=== PATIENT | female | born 1930 | race Caucasian/White ===

== ENCOUNTER → 2017-01-12 | Outpatient (CLI) | payer OTHER ==
[2015-03-25 07:23] VITALS: BP 146/77
[2017-01-12 13:48] LABS: BASOPHILS % (AUTO) 0.8 % (0.2-1.0); EOSINOPHILS # (AUTO) 0.4 x10^3/uL (0.0-0.2); EOSINOPHILS % (AUTO) 6.9 % (0.9-2.9); HEMATOCRIT 38.5 % (36.0-47.0); HEMOGLOBIN 12.8 g/dL (12.0-16.0); LYMPHOCYTES # (AUTO) 0.8 X10^3/uL (1.3-2.9); LYMPHOCYTES % (AUTO) 12.8 % (21.0-51.0); MEAN CORPUSCULAR HEMOGLOBIN 29.6 pg (27.0-34.0); MEAN CORPUSCULAR HGB CONC 33.1 g/dL (33.0-35.0); MEAN CORPUSCULAR VOLUME 89.3 fL (80.0-100.0); MEAN PLATELET VOLUME 8.2 fL (7.4-11.0); MONOCYTES # (AUTO) 0.5 x10^3/uL (0.3-0.8); MONOCYTES % (AUTO) 8.3 % (0.0-13.0); NEUTROPHILS # (AUTO) 4.2 x10^3/uL (2.2-4.8); NEUTROPHILS % (AUTO) 71.2 % (42.0-75.0); PLATELET COUNT 181 X10^3/uL (150.0-450.0); RED BLOOD COUNT 4.31 X10^6/uL (3.5-5.4); RED CELL DISTRIBUTION WIDTH 13.4 % (11.6-16.5); WHITE BLOOD COUNT 5.9 X10^3/uL (3.6-10.0)
[2017-01-12 13:49] LABS: BILIRUBIN,URINE NEGATIVE (NEGATIVE); BLOOD/HEMOGLOBIN,URINE NEGATIVE (NEGATIVE); GLUCOSE, URINE NEGATIVE (NEGATIVE); KETONES,URINE NEGATIVE (NEGATIVE); LEUKOCYTE ESTERASE ,URINE 1+ (NEGATIVE); NITRITES,URINE NEGATIVE (NEGATIVE); PROTEIN,URINE 2+ (NEGATIVE); UROBILINOGEN,URINE NORMAL (NORMAL)
[2017-01-12 13:56] LABS: AMORPHOUS SEDIMENT,UR TRACE /HPF (NEGATIVE); APPEARANCE,URINE SLIGHTLY HAZY (CLEAR); BACTERIA,URINE NEGATIVE /HPF (NEGATIVE); COLOR,URINE YELLOW (YELLOW); MUCUS,URINE FEW /HPF (NEGATIVE); RBC,URINE NONE SEEN /HPF (NEGATIVE); SQUAMOUS EPITHELIAL CELL,UR RARE /HPF (NEGATIVE)
[2017-01-12 13:59] LABS: CALCIUM 8.8 mg/dL (8.5-10.1); CARBON DIOXIDE 29.8 mmol/L (21-32); CREATININE 1.17 mg/dL (0.55-1.02)
== END ==
LOC: LAB 12:56
PROVIDERS: ATTEND Physical Medicine & Rehabilitation Pain Medicine
DX: Z01.818 Encounter for other preprocedural examination (principal); Z79.899 Other long term (current) drug therapy; Z11.8 Encounter for screening for other infectious and parasitic diseases; R79.1 Abnormal coagulation profile
CPT/HCPCS: 36415; 80048; 81001; 85025; 85610; 87641

== ENCOUNTER → 2017-02-28 | Outpatient (CLI) | payer OTHER ==
[2015-03-25 07:23] VITALS: BP 146/77
--- NOTE | 2017-02-28 13:28 | RAD ---
HISTORY: Preop hardware removal Study: Chest two views Comparison: CT chest November 25, 2016 Findings: The heart is mildly enlarged. No congestive heart failure is noted. The aorta is calcified. The lung s are mildly hyperinflated but free of acute infiltrates. No pleural effusions are identified. There is increased thoracic kyphosis secondary to thoracic spinal osteopenia with multiple compression fr actures previously treated with kyphoplasty. Hardware is present in the lower thoracic and lumbar sp ine. IMPRESSION: Mild cardiomegaly without congestive heart failure Lungs mildly hyperinflated but clear Reported By:
[2017-02-28 13:55] LABS: BASOPHILS # (AUTO) 0.1 X10^3/uL (0.0-0.1); BASOPHILS % (AUTO) 1.3 % (0.2-1.0); EOSINOPHILS # (AUTO) 0.3 x10^3/uL (0.0-0.2); EOSINOPHILS % (AUTO) 5.1 % (0.9-2.9); HEMATOCRIT 36.5 % (36.0-47.0); HEMOGLOBIN 12.1 g/dL (12.0-16.0); LYMPHOCYTES # (AUTO) 0.9 X10^3/uL (1.3-2.9); LYMPHOCYTES % (AUTO) 15.5 % (21.0-51.0); MEAN CORPUSCULAR HEMOGLOBIN 29.6 pg (27.0-34.0); MEAN CORPUSCULAR HGB CONC 33.1 g/dL (33.0-35.0); MEAN CORPUSCULAR VOLUME 89.4 fL (80.0-100.0); MONOCYTES # (AUTO) 0.5 x10^3/uL (0.3-0.8); MONOCYTES % (AUTO) 7.8 % (0.0-13.0); NEUTROPHILS # (AUTO) 4.2 x10^3/uL (2.2-4.8); NEUTROPHILS % (AUTO) 70.3 % (42.0-75.0); PLATELET COUNT 170 X10^3/uL (150.0-450.0); RED BLOOD COUNT 4.08 X10^6/uL (3.5-5.4); RED CELL DISTRIBUTION WIDTH 13.5 % (11.6-16.5)
[2017-02-28 17:05] LABS: BLOOD UREA NITROGEN 18 mg/dL (7-18); CALCIUM 9.1 mg/dL (8.5-10.1); CARBON DIOXIDE 27.7 mmol/L (21-32); CHLORIDE 104 mmol/L (98-107); CREATININE 1.04 mg/dL (0.55-1.02); GLUCOSE 93 mg/dL (65-99); SODIUM 138 mmol/L (136-145); eGFR BLACK RACES > 60 (>60); eGFR NON BLACK RACES 54 (>60)
== END | disposition home or self-care (01) ==
LOC: LAB 12:52
PROVIDERS: ATTEND Neurological Surgery
DX: Z01.818 Encounter for other preprocedural examination (principal); Z01.810 Encounter for preprocedural cardiovascular examination; Z01.811 Encounter for preprocedural respiratory examination; I34.1 Nonrheumatic mitral (valve) prolapse; J44.9 Chronic obstructive pulmonary disease, unspecified
CPT/HCPCS: 36415; 71020; 80048; 85002; 85025; 93005; 93010

== ENCOUNTER 2017-03-09 09:47 | Inpatient (IN) | payer OTHER ==
[2017-03-09] MEDS ORDERED: DILAUDID INJ IVP ONE ×3 (09:51→15:10)
[2017-03-09] MEDS ORDERED: DILAUDID INJ ONE ×4 (09:54→16:22)
--- NOTE | 2017-03-09 09:54 | DR.GENAD ---
HPI - Complaint/Symptoms Chief Complaint Doctors Comments: Patient fell today while at home, injured left hip. Yesterday had nerve stimulator implanted on yesterday. Patient states that when she got out of bed she put pressure on right foot but when she put pressure on the left extremity she fell to the floor. Had pain in left hip. - Nurses notes reviewed Nurses Notes Review: Yes - Source History Provided: Patient - Mode of Arrival Mode of Arrival: EMS - Timing Onset of Chief Complaint: 03/09/17 PMH - PMH Past Medical History: Anxiety, Dyslipidemia Past Surgical History: Yes Surgical History: Hysterectomy - Social History Do you use any recreational Drugs:: No ROS - Review of Systems Eyes: No Symptoms Reported ENTM: No Symptoms Reported Respiratoy: No Symptoms Reported Cardiovascular: No Symptoms Reported Gastrointestinal/Abdominal: No Symptoms Reported Genitourinary: No Symptoms Reported Neurological: No Symptoms Reported Musculoskeletal: Hip (left ) Integumentary: No Symptoms Reported Hematologic/Lymphatic: No Symptoms Reported Endocrine: No Symptoms Reported Psychiatric: No Symptoms Reported All Other Systems: Reviewed and Negative PE - Vital Signs Vitals: Temperature 97.6 F Pulse Rate 78 Respiratory Rate 18 Blood Pressure 184/73 O2 Sat by Pulse Oximetry 97 - General Limitations: No Limitations General Appearance: Alert, In Distress - Head Head Exam: Normal Inspection, Atraumatic - Eyes Eye exam: Normal Appearance, PERRL, EOMI - ENT ENT Exam: Normal Exam External Ear Exam: Normal External Inspection TM/Canal Exam: Bilateral Normal Nose Exam: Normal Nose Exam Mouth Exam: Normal Inspection Throat Exam: Normal Inspection - Neck Neck Exam: Normal Inspection - Chest Chest Inspection: Normal Inspection - Respiratory Respiratory Exam: Normal Lung Sounds Bilat Respiratory Exam: Bilateral Clear to Auscultation - Cardiovascular Cardiovascular Exam: Regular Rate, Normal Rhythm - Abdominal Exam Abdominal Exam: Normal Inspection Abdominal Tenderness: negative: RUQ, RLQ, LUQ, LLQ, Epigastrium, Suprapubic, Diffuse, Mild, Moderate, Severe, Other - Extremities Extremities Exam: Tenderness (left hip externally rotated, painful to touch) - Back Back Exam: Tenderness (chronic low back pain, nerve stimulator inplanted yesterday) - Neurologic Neurological Exam: Alert, Oriented X3 - Psychiatric Psychiatric Exam: Normal Affect - Skin Skin Exam: Warm, Dry Course - Treatment Treatment: Dilaudid, x ray,consult ortho--Dr Chan came to evaluate patient - Reevaluation 1st: Improved - Consultation Called: 11:01 (He reported that there is a surgeon in the group who does hips and will call back shortly concerning particulars) Call Returned: 13:05 ([facility]rest for further evaluation and treatment) ROR - Labs Reviewed Result Diagrams: 03/09/17 15:25 03/09/17 15:25 - XRAY XRAY Interpreted by: Radiologist (A comminuted spiral fracture of the sub trochanteric region of the proximal left femoral shaft. There is valgus displacement of the distal fracture fragments.) - Diagnosis Discharge Problem: Fracture, femur, subtrochanteric Qualifiers: Encounter type: initial encounter Fracture type: closed Fracture alignment: displaced Laterality: left Qualified Code(s): S72.22XA - Displaced subtrochanteric fracture of left femur, initial encounter for closed fracture - Discharge Plan Condition: Stable - Follow ups/Referrals Follow ups/Referrals: NFD,None [Primary Care Provider] - 3 days - Instructions
[2017-03-09 10:03] VITALS: BMI 24.7
--- NOTE | 2017-03-09 10:50 | RAD ---
HISTORY: Injury, fall, left hip pain Study: Left hip two views, AP pelvis Comparison: None Findings: Postsurgical changes are present in the lower lumbar spine and pelvis. The pelvic bones are osteopen ic. The pelvic bones and SI joints appear intact as do the hip joints. However there is a comminuted spiral fracture of the sub trochanteric region of the proximal left femoral shaft. There is valgus displacement of the distal fracture fragments. IMPRESSION: Comminuted fracture of the left sub trochanteric region and proximal left femoral shaft Osteopenia Reported By:
--- NOTE | 2017-03-09 14:18 | CT ---
CT left hip without contrast Indication: Fall with hip fracture Technique: 3 mm axial images of the left hip with coronal and sagittal reformatted images provided w ithout IV contrast administration. Findings: There is a comminuted intertrochanteric femoral neck fracture. A large fracture including the lesser trochanter is displaced inferomedially. Femoral head remains well positioned within the a cetabulum. There is mild osteoarthrosis of the left femoral acetabular joint. Mild enthesopathic sarah nge of the greater trochanter. Transpedicular lower lumbar spine fixation extending into the SI join t and superior left iliac crest without evidence of hardware loosening or failure. Left-sided obtura tor ring is intact. Degenerative change are noted within pubic symphysis joint. Diffuse osteopenia is present. There is enlargement and stranding within the left iliopsoas muscle consistent with combination of tear and i ntramuscular hematoma. Impression: 1.Comminuted intratrochanteric/proximal femoral diaphysis fracture with inferomedial displacement of the large fracture fragment including the lesser trochanter and proximal femoral diaphysis. No frac ture or dislocation of the femoral head or acetabulum. 2. Intramuscular tear and hematoma within the left iliopsoas muscle. Reported By:
[2017-03-09] MEDS ORDERED: DIPRIVAN VIAL ONE (15:30)
[2017-03-09] MEDS ORDERED: NORCURON INJ 10 MG VIAL ONE (15:30)
[2017-03-09] MEDS ORDERED: ROBINUL ONE (15:30)
[2017-03-09] MEDS ORDERED: NEOSTIGMINE INJ ONE (15:30)
[2017-03-09] MEDS ORDERED: QUELICIN (OR ANECTINE) ONE (15:30)
[2017-03-09] MEDS ORDERED: ZOFRAN INJ 4 MG VIAL ONE (15:30)
[2017-03-09] MEDS ORDERED: XYLOCAINE 2 % (PLAIN) ONE (15:30)
[2017-03-09] MEDS ORDERED: SUPRANE IN ONE (15:30)
[2017-03-09] MEDS ORDERED: EPHEDRINE SULFATE INJ ONE (15:30)
[2017-03-09 15:40] LABS: BASOPHILS % (AUTO) 0.4 % (0.2-1.0); HEMATOCRIT 31.2 % (36.0-47.0); HEMOGLOBIN 10.4 g/dL (12.0-16.0); LYMPHOCYTES # (AUTO) 0.4 X10^3/uL (1.3-2.9); LYMPHOCYTES % (AUTO) 3.7 % (21.0-51.0); MEAN CORPUSCULAR HGB CONC 33.2 g/dL (33.0-35.0); MEAN CORPUSCULAR VOLUME 90.5 fL (80.0-100.0); MEAN PLATELET VOLUME 8.2 fL (7.4-11.0); MONOCYTES # (AUTO) 0.8 x10^3/uL (0.3-0.8); MONOCYTES % (AUTO) 6.6 % (0.0-13.0); NEUTROPHILS # (AUTO) 10.4 x10^3/uL (2.2-4.8); NEUTROPHILS % (AUTO) 89.3 % (42.0-75.0); PLATELET COUNT 155 X10^3/uL (150.0-450.0); RED BLOOD COUNT 3.45 X10^6/uL (3.5-5.4); RED CELL DISTRIBUTION WIDTH 13.7 % (11.6-16.5); WHITE BLOOD COUNT 11.6 X10^3/uL (3.6-10.0)
[2017-03-09 15:43] LABS: CALCIUM 8.3 mg/dL (8.5-10.1); CARBON DIOXIDE 27.5 mmol/L (21-32); COR CA(FOR HYPOALB) 9.1 mg/dL (8.5-10.1); CREATININE 1.21 mg/dL (0.55-1.02); TOTAL PROTEIN 6.2 g/dL (6.4-8.2)
--- NOTE | 2017-03-09 15:46 | RAD ---
Examination: X-rays of the left femur. Clinical history: Left femur fracture, status post traction. Technique: AP and cross-table lateral views of the left femur were obtained. Comparison: X-rays of the left hip dated 03/09/2017. Findings: There is a comminuted intertrochanteric/subtrochanteric fracture of the left hip/femur, which is imp acted, with displaced bony fragments seen at the fracture site. There is rotation of the distal frag ment, as well as mild lateral angulation of the distal fragment. No soft tissue abnormality is noted. Impression: 1. Comminuted intertrochanteric/subtrochanteric fracture of the left hip/femur, as described above. Reported By:
[2017-03-09] MEDS ORDERED: BACITRACIN VIAL ONE (16:13)
[2017-03-09] MEDS ORDERED: FENTANYL INJ 250 mcg ONE (16:22)
[2017-03-09] MEDS ORDERED: NS IRRIGATION 1000 ML 1,000 ML with BACITRACIN VIAL 50,000 UNT IR ONE ×2 (16:30)
[2017-03-09] MEDS ORDERED: LR 1000 ML IV 1,000 ML IV ONE (17:10)
[2017-03-09 17:25] LABS: BILIRUBIN,URINE NEGATIVE (NEGATIVE); BLOOD/HEMOGLOBIN,URINE 1+ (NEGATIVE); GLUCOSE, URINE NEGATIVE (NEGATIVE); KETONES,URINE 2+ (NEGATIVE); LEUKOCYTE ESTERASE ,URINE NEGATIVE (NEGATIVE); NITRITES,URINE NEGATIVE (NEGATIVE); PROTEIN,URINE 3+ (NEGATIVE); UROBILINOGEN,URINE NORMAL (NORMAL)
[2017-03-09 17:44] LABS: AMORPHOUS SEDIMENT,UR 2+ /HPF (NEGATIVE); APPEARANCE,URINE HAZY (CLEAR); BACTERIA,URINE 1+ /HPF (NEGATIVE); COLOR,URINE YELLOW (YELLOW); MUCUS,URINE MODERATE /HPF (NEGATIVE); SQUAMOUS EPITHELIAL CELL,UR NEGATIVE /HPF (NEGATIVE)
[2017-03-09] MEDS ORDERED: BACTROBAN OINT ONE (18:18)
[2017-03-09] MEDS ORDERED: ZOFRAN INJ 4 MG VIAL IVP PRN ×2 (18:53→19:57)
[2017-03-09] MEDS ORDERED: DILAUDID INJ IVP PRN ×2 (18:53→20:04)
[2017-03-09] MEDS ORDERED: BENADRYL INJ 50 MG VIAL IVP PRN (18:53)
[2017-03-09] MEDS ORDERED: REGLAN INJ 10 MG VIAL IVP PRN (18:53)
[2017-03-09] MEDS ORDERED: PHENERGAN INJ 25 MG IVP PRN (18:53)
[2017-03-09 19:46] LABS: HEMATOCRIT 27.9 % (36.0-47.0); HEMOGLOBIN 9.1 g/dL (12.0-16.0)
--- NOTE | 2017-03-09 19:52 | RAD ---
FEMUR RADIOGRAPHS CLINICAL HISTORY: 86-year-old female status post ORIF left femur. COMPARISON: Radiographs of the left femur and CT of the left lower extremity this date. FINDINGS: Multiple views of the left femur demonstrate intra medullary nail with distal locking scre w and proximal helical locking screw through the femoral neck transfixing a proximal femoral fractur e and anatomic alignment. There is expected soft tissue edema about the hip and knee. Surgical drain in the soft tissues of lateral knee. Skin iggy at the hip and knee. The knee and hip joints are congruent. IMPRESSION: Status post ORIF proximal left femoral fracture with no radiographic evidence of immediate postopera tive complication. Reported By:
--- NOTE | 2017-03-09 19:53 | RAD ---
HIP RADIOGRAPHS CLINICAL HISTORY: 86-year-old female status post ORIF left femoral fracture. COMPARISON: Radiographs and CT of the left lower extremity this date. FINDINGS: Views of the left hip demonstrate proximal aspect of intra medullary nail and femoral neck helical locking screw transfixing a femoral fracture within anatomic alignment. Expected soft tissu e edema about the hip with skin iggy present. Medication device over the left lower quadrant with partially imaged posterior spinal fusion. IMPRESSION: Status post ORIF left femoral fracture without radiographic evidence of immediate postoperative comp lication. Reported By:
[2017-03-09] MEDS: MORPHINE SULFATE INJ 2 MG IVP PRN (20:48)
[2017-03-09] MEDS: LR 1000 ML IV 1,000 ML IV SCH (20:48)
[2017-03-09] MEDS: DESYREL PO SCH (22:33)
[2017-03-09] MEDS: VALIUM PO PRN (22:33)
[2017-03-09] MEDS ORDERED: NS 250 ML IV 250 ML IV ONE (22:50)
[2017-03-10] MEDS: MORPHINE SULFATE INJ 2 MG IVP PRN ×3 (05:39→19:08)
[2017-03-10 06:17] LABS: BASOPHILS % (AUTO) 0.2 % (0.2-1.0); EOSINOPHILS % (AUTO) 0.3 % (0.9-2.9); HEMATOCRIT 25.2 % (36.0-47.0); HEMOGLOBIN 8.8 g/dL (12.0-16.0); LYMPHOCYTES # (AUTO) 0.7 X10^3/uL (1.3-2.9); LYMPHOCYTES % (AUTO) 10.3 % (21.0-51.0); MEAN CORPUSCULAR HEMOGLOBIN 31.2 pg (27.0-34.0); MEAN CORPUSCULAR HGB CONC 34.8 g/dL (33.0-35.0); MEAN CORPUSCULAR VOLUME 89.8 fL (80.0-100.0); MEAN PLATELET VOLUME 8.6 fL (7.4-11.0); MONOCYTES # (AUTO) 0.7 x10^3/uL (0.3-0.8); MONOCYTES % (AUTO) 10.4 % (0.0-13.0); NEUTROPHILS # (AUTO) 5.3 x10^3/uL (2.2-4.8); NEUTROPHILS % (AUTO) 78.8 % (42.0-75.0); PLATELET COUNT 115 X10^3/uL (150.0-450.0); RED BLOOD COUNT 2.81 X10^6/uL (3.5-5.4); RED CELL DISTRIBUTION WIDTH 13.4 % (11.6-16.5); WHITE BLOOD COUNT 6.8 X10^3/uL (3.6-10.0)
[2017-03-10 06:34] LABS: BLOOD UREA NITROGEN 16 mg/dL (7-18); CARBON DIOXIDE 28.3 mmol/L (21-32); CHLORIDE 107 mmol/L (98-107); COR NA(FOR HYPERGLY) 141 mmol/L (136-145); CREATININE 1.02 mg/dL (0.55-1.02); GLUCOSE 143 mg/dL (65-99); SODIUM 140 mmol/L (136-145); eGFR BLACK RACES > 60 (>60); eGFR NON BLACK RACES 55 (>60)
[2017-03-10] MEDS: D5W 1000 ML IV 1,000 ML IV SCH ×2 (07:35→15:38)
[2017-03-10] MEDS: ECOTRIN TAB 325 MG PO SCH (09:46)
[2017-03-10] MEDS: LR 1000 ML IV 1,000 ML IV SCH ×2 (10:09→14:00)
[2017-03-10] MEDS: ANCEF VIAL 1 GM 1 GM in NS 50 ML IV + SPIKE MINIBAG* 50 ML IV SCH ×2 (14:53→21:42)
[2017-03-10] MEDS: VALIUM PO PRN (20:13)
[2017-03-10] MEDS: DESYREL PO SCH (20:13)
[2017-03-11] MEDS: LR 1000 ML IV 1,000 ML IV SCH ×2 (02:29→18:19)
[2017-03-11] MEDS: ANCEF VIAL 1 GM 1 GM in NS 50 ML IV + SPIKE MINIBAG* 50 ML IV SCH ×2 (06:28→13:40)
[2017-03-11 06:54] LABS: BLOOD UREA NITROGEN 10 mg/dL (7-18); CALCIUM 8.2 mg/dL (8.5-10.1); CARBON DIOXIDE 29.8 mmol/L (21-32); CHLORIDE 108 mmol/L (98-107); COR NA(FOR HYPERGLY) 142 mmol/L (136-145); CREATININE 0.92 mg/dL (0.55-1.02); GLUCOSE 114 mg/dL (65-99); SODIUM 142 mmol/L (136-145); eGFR BLACK RACES > 60 (>60); eGFR NON BLACK RACES > 60 (>60)
[2017-03-11 07:05] LABS: BASOPHILS % (AUTO) 0.5 % (0.2-1.0); EOSINOPHILS # (AUTO) 0.2 x10^3/uL (0.0-0.2); EOSINOPHILS % (AUTO) 3.8 % (0.9-2.9); HEMATOCRIT 20.4 % (36.0-47.0); HEMOGLOBIN 7.1 g/dL (12.0-16.0); LYMPHOCYTES # (AUTO) 0.6 X10^3/uL (1.3-2.9); LYMPHOCYTES % (AUTO) 10.2 % (21.0-51.0); MEAN CORPUSCULAR HEMOGLOBIN 31.2 pg (27.0-34.0); MEAN CORPUSCULAR VOLUME 89.3 fL (80.0-100.0); MEAN PLATELET VOLUME 8.8 fL (7.4-11.0); MONOCYTES # (AUTO) 0.7 x10^3/uL (0.3-0.8); MONOCYTES % (AUTO) 10.3 % (0.0-13.0); NEUTROPHILS # (AUTO) 4.8 x10^3/uL (2.2-4.8); NEUTROPHILS % (AUTO) 75.2 % (42.0-75.0); PLATELET COUNT 100 X10^3/uL (150.0-450.0); RED BLOOD COUNT 2.29 X10^6/uL (3.5-5.4); RED CELL DISTRIBUTION WIDTH 13.5 % (11.6-16.5); WHITE BLOOD COUNT 6.3 X10^3/uL (3.6-10.0)
[2017-03-11 07:59] LABS: PLATELET MORPHOLOGY COMMENT NORMAL (NORMAL)
[2017-03-11] MEDS ORDERED: PATIENT'S HOME MEDICATION RESPIRATORY (Oxycodone W/ Acetaminophen [Oxycodone/Acetaminophen PO PRN (09:03)
[2017-03-11] MEDS ORDERED: [UNRECOGNIZED DRUG - OTHER] INH SCH (09:15)
[2017-03-11] MEDS ORDERED: ACCUNEB 1.25 MG NEBULE IN SCH ×2 (09:15→14:00)
[2017-03-11] MEDS: ECOTRIN TAB 325 MG PO SCH (09:33)
[2017-03-11] MEDS ORDERED: ASPIRIN EC 81 MG PO SCH (10:00)
[2017-03-11] MEDS: MORPHINE SULFATE INJ 2 MG IVP PRN (10:05)
[2017-03-11] MEDS: COLACE CAP 100 MG PO SCH ×2 (11:37→20:46)
[2017-03-11] MEDS: ACCUNEB 1.25 MG NEBULE NEB SCH ×2 (13:00→21:31)
[2017-03-11] MEDS: PERCOCET TAB 5/325 MG PO SCH ×2 (13:40→22:07)
[2017-03-11] MEDS ORDERED: NS 500 ML IV 500 ML IV ONE (15:09)
[2017-03-11] MEDS: PATIENT'S HOME MEDICATION RESPIRATORY (Oxybutynin Chloride [Ditropan Xl] 10 MG) PO SCH (16:32)
[2017-03-11] MEDS: CRESTOR TAB 10 MG PO SCH (20:46)
[2017-03-11] MEDS: DESYREL PO SCH (20:48)
[2017-03-11] MEDS ORDERED: [UNRECOGNIZED DRUG - OTHER] PO SCH (21:00)
[2017-03-11] MEDS ORDERED: [UNRECOGNIZED DRUG - OTHER] PO SCH (21:00)
[2017-03-11] MEDS ORDERED: [UNRECOGNIZED DRUG - OTHER] PO SCH (21:00)
[2017-03-12 06:17] LABS: BLOOD UREA NITROGEN 10 mg/dL (7-18); CALCIUM 8.1 mg/dL (8.5-10.1); CARBON DIOXIDE 31.7 mmol/L (21-32); CHLORIDE 108 mmol/L (98-107); COR NA(FOR HYPERGLY) 142 mmol/L (136-145); CREATININE 0.87 mg/dL (0.55-1.02); GLUCOSE 118 mg/dL (65-99); SODIUM 142 mmol/L (136-145); eGFR BLACK RACES > 60 (>60); eGFR NON BLACK RACES > 60 (>60)
[2017-03-12 06:40] LABS: BASOPHILS # (AUTO) 0.1 X10^3/uL (0.0-0.1); HEMOGLOBIN 8.9 g/dL (12.0-16.0); LYMPHOCYTES # (AUTO) 1.1 X10^3/uL (1.3-2.9); MONOCYTES # (AUTO) 0.8 x10^3/uL (0.3-0.8); RED CELL DISTRIBUTION WIDTH 14.3 % (11.6-16.5)
[2017-03-12 06:46] LABS: BASOPHILS % (AUTO) 0.7 % (0.2-1.0); EOSINOPHILS # (AUTO) 0.9 x10^3/uL (0.0-0.2); EOSINOPHILS % (AUTO) 8.5 % (0.9-2.9); HEMATOCRIT 25.3 % (36.0-47.0); MEAN CORPUSCULAR HEMOGLOBIN 30.8 pg (27.0-34.0); MEAN CORPUSCULAR HGB CONC 35.1 g/dL (33.0-35.0); MEAN CORPUSCULAR VOLUME 87.7 fL (80.0-100.0); MEAN PLATELET VOLUME 9.1 fL (7.4-11.0); MONOCYTES % (AUTO) 8.2 % (0.0-13.0); NEUTROPHILS # (AUTO) 7.2 x10^3/uL (2.2-4.8); NEUTROPHILS % (AUTO) 71.6 % (42.0-75.0); PLATELET COUNT 118 X10^3/uL (150.0-450.0); RED BLOOD COUNT 2.89 X10^6/uL (3.5-5.4)
[2017-03-12 07:19] LABS: PLATELET MORPHOLOGY COMMENT NORMAL (NORMAL)
[2017-03-12] MEDS: PATIENT'S HOME MEDICATION RESPIRATORY (Oxybutynin Chloride [Ditropan Xl] 10 MG) PO SCH (08:30)
[2017-03-12] MEDS: ECOTRIN TAB 325 MG PO SCH (08:43)
[2017-03-12] MEDS: MORPHINE SULFATE INJ 2 MG IVP PRN ×2 (08:43→14:35)
[2017-03-12] MEDS: PERCOCET TAB 5/325 MG PO SCH ×3 (08:43→21:25)
[2017-03-12] MEDS: COLACE CAP 100 MG PO SCH ×2 (08:43→20:15)
[2017-03-12] MEDS: LR 1000 ML IV 1,000 ML IV SCH ×2 (09:02→20:19)
[2017-03-12] MEDS: MILK OF MAGNESIA PO SCH ×2 (12:16→20:16)
[2017-03-12] MEDS: ACCUNEB 1.25 MG NEBULE NEB SCH ×3 (12:43→20:42)
[2017-03-12 15:49] LABS: HEMATOCRIT 25.6 % (36.0-47.0)
[2017-03-12] MEDS: CYMBALTA PO SCH (17:44)
[2017-03-12] MEDS: CRESTOR TAB 10 MG PO SCH (20:17)
[2017-03-12] MEDS: DESYREL PO SCH (20:18)
[2017-03-13] MEDS: ACCUNEB 1.25 MG NEBULE NEB SCH ×3 (05:19→22:17)
[2017-03-13 05:27] LABS: BASOPHILS % (AUTO) 0.5 % (0.2-1.0); EOSINOPHILS # (AUTO) 0.6 x10^3/uL (0.0-0.2); EOSINOPHILS % (AUTO) 9.5 % (0.9-2.9); HEMATOCRIT 23.1 % (36.0-47.0); HEMOGLOBIN 8.1 g/dL (12.0-16.0); LYMPHOCYTES # (AUTO) 0.9 X10^3/uL (1.3-2.9); LYMPHOCYTES % (AUTO) 15.7 % (21.0-51.0); MEAN CORPUSCULAR HEMOGLOBIN 30.8 pg (27.0-34.0); MEAN CORPUSCULAR HGB CONC 35.2 g/dL (33.0-35.0); MEAN CORPUSCULAR VOLUME 87.5 fL (80.0-100.0); MEAN PLATELET VOLUME 8.4 fL (7.4-11.0); MONOCYTES # (AUTO) 0.6 x10^3/uL (0.3-0.8); MONOCYTES % (AUTO) 9.2 % (0.0-13.0); NEUTROPHILS # (AUTO) 3.9 x10^3/uL (2.2-4.8); NEUTROPHILS % (AUTO) 65.1 % (42.0-75.0); PLATELET COUNT 116 X10^3/uL (150.0-450.0); RED BLOOD COUNT 2.63 X10^6/uL (3.5-5.4); RED CELL DISTRIBUTION WIDTH 14.4 % (11.6-16.5)
[2017-03-13 05:47] LABS: ALANINE AMINOTRANSFERASE 13 Units/L (12-78); ALBUMIN 1.9 g/dL (3.4-5.0); ALKALINE PHOSPHATASE 57 Units/L (46-116); ASPARTATE AMINO TRANSFERASE 20 Units/L (15-37); BLOOD UREA NITROGEN 9 mg/dL (7-18); CALCIUM 8.1 mg/dL (8.5-10.1); CARBON DIOXIDE 33.2 mmol/L (21-32); CHLORIDE 107 mmol/L (98-107); COR CA(FOR HYPOALB) 9.8 mg/dL (8.5-10.1); GLUCOSE 102 mg/dL (65-99); SODIUM 143 mmol/L (136-145); TOTAL PROTEIN 4.9 g/dL (6.4-8.2); eGFR BLACK RACES > 60 (>60); eGFR NON BLACK RACES > 60 (>60)
[2017-03-13] MEDS: PERCOCET TAB 5/325 MG PO SCH ×3 (06:48→21:59)
[2017-03-13] MEDS: CYMBALTA PO SCH (08:40)
[2017-03-13] MEDS: LR 1000 ML IV 1,000 ML IV SCH (08:40)
[2017-03-13] MEDS: MILK OF MAGNESIA PO SCH ×2 (08:40→22:00)
[2017-03-13] MEDS: COLACE CAP 100 MG PO SCH ×2 (08:40→21:58)
[2017-03-13] MEDS: ECOTRIN TAB 325 MG PO SCH (08:40)
[2017-03-13] MEDS ORDERED: CYMBALTA PO SCH (10:00)
[2017-03-13] MEDS: PATIENT'S HOME MEDICATION RESPIRATORY (Oxybutynin Chloride [Ditropan Xl] 10 MG) PO SCH (11:05)
[2017-03-13 12:10] LABS: HEMATOCRIT 27.3 % (36.0-47.0); HEMOGLOBIN 9.5 g/dL (12.0-16.0)
--- NOTE | 2017-03-13 14:02 | PCM.PROG ---
Progress Note - Progress Note for Day of Date: 03/13/17 - Subjective Subjective: 86 WF S/P LEFT HIP FRACTURE REPAIR PER DR GRANGER. PT IS CURRENTLY AWAITING SNF PLACEMENT FOR REHAB THERAPY. PT HAS ASYMPTOMATIC ANEMIA. WILL CONTINUE CURRENT MEDS AND POST OP ORTHO PLAN OF CARE. REPEAT AM LABS - Past Medical Family Social History Past Med/Fam/Surg Hx: No changes since H&P Allergies: Allergies No Known Drug Allergy Allergy (Verified 02/21/15 10:46) - Review of Systems ROS: No change since H&P - Vital Signs and I&O's Vital Signs: Temperature 98.3 F Pulse Rate [Right Brachial] 88 Pulse Rate 64 Respiratory Rate 18 Blood Pressure [Left Arm] 156/68 Blood Pressure [Right Arm] 177/72 Blood Pressure 137/64 O2 Sat by Pulse Oximetry 93 Intake and Output: Intake & Output 03/11/17 03/12/17 03/13/17 03/14/17 11:59 11:59 11:59 11:59 Intake Total 3498 2760 2040 Output Total 2100 2250 3800 Balance 1398 510 -1760 - Physical Exam Oriented: Normal Eyes: Normal Ear: Normal Nose: Normal Throat: Normal Respiratory: Normal Cardiovascular: Normal Auscultation: Bowel Sounds: Normal Palpation: Normal Tenderness: Normal Skin: Vesicular (RUPTURED BLISTER TO LEFT INNER THIGH, NO LOCALIZED REDNESS), Wound (LEFT HIP, CLEAN INTACT DRESSING) Musculoskeletal: Hip, Back:Lumbar Mood Description: Calm Speech Pattern: Clear, Appropriate - Laboratory and Diagnostics Result Diagrams: 03/13/17 12:05 03/13/17 03:27 Labs: Laboratory WBC 6.0 X10^3/uL (3.6-10.0) 03/13/17 03:27 RBC 2.63 X10^6/uL (3.5-5.4) L 03/13/17 03:27 Hgb 9.5 g/dL (12.0-16.0) L 03/13/17 12:05 Hct 27.3 % (36.0-47.0) L 03/13/17 12:05 MCV 87.5 fL (80.0-100.0) 03/13/17 03:27 MCH 30.8 pg (27.0-34.0) 03/13/17 03:27 MCHC 35.2 g/dL (33.0-35.0) H 03/13/17 03:27 RDW 14.4 % (11.6-16.5) 03/13/17 03:27 Plt Count 116 X10^3/uL (150.0-450.0) L 03/13/17 03:27 Plt Count Comment Decreased (ADEQUATE) A 03/12/17 05:32 MPV 8.4 fL (7.4-11.0) 03/13/17 03:27 Neut % 65.1 % (42.0-75.0) 03/13/17 03:27 Lymph % 15.7 % (21.0-51.0) L 03/13/17 03:27 [place] % 9.2 % (0.0-13.0) 03/13/17 03:27 Eos % 9.5 % (0.9-2.9) H 03/13/17 03:27 Baso % 0.5 % (0.2-1.0) 03/13/17 03:27 Neut # 3.9 x10^3/uL (2.2-4.8) 03/13/17 03:27 Lymph # 0.9 X10^3/uL (1.3-2.9) L 03/13/17 03:27 [place] # 0.6 x10^3/uL (0.3-0.8) 03/13/17 03:27 Eos # 0.6 x10^3/uL (0.0-0.2) H 03/13/17 03:27 Baso # 0.0 X10^3/uL (0.0-0.1) 03/13/17 03:27 Absolute Nucleated RBC 0.0 /100WBC 03/13/17 03:27 Plt Morphology Comment Normal (NORMAL) 03/12/17 05:32 RBC Morphology Normal (NORMAL) 03/12/17 05:32 Sodium 143 mmol/L (136-145) 03/13/17 03:27 Corrected Sodium TNP 03/13/17 03:27 Potassium 4.0 mmol/L (3.5-5.1) 03/13/17 03:27 Chloride 107 mmol/L (98-107) 03/13/17 03:27 Carbon Dioxide 33.2 mmol/L (21-32) H 03/13/17 03:27 BUN 9 mg/dL (7-18) 03/13/17 03:27 Creatinine 0.80 mg/dL (0.55-1.02) 03/13/17 03:27 Est GFR (MDRD) Af Amer > 60 (>60) 03/13/17 03:27 Est GFR (MDRD) Non-Af > 60 (>60) 03/13/17 03:27 Glucose 102 mg/dL (65-99) H 03/13/17 03:27 Calcium 8.1 mg/dL (8.5-10.1) L 03/13/17 03:27 Corrected Calcium 9.8 mg/dL (8.5-10.1) 03/13/17 03:27 Iron 26 ug/dL (50-175) L 03/13/17 03:27 TIBC 130 ug/dL (250-450) L 03/13/17 03:27 % Saturation 20.0 % (11.0-46.0) 03/13/17 03:27 Ferritin 370 ng/mL (8-252) H 03/13/17 03:27 Total Bilirubin 0.70 mg/dL (0.2-1.0) 03/13/17 03:27 AST 20 Units/L (15-37) 03/13/17 03:27 ALT 13 Units/L (12-78) 03/13/17 03:27 Alkaline Phosphatase 57 Units/L (46-116) 03/13/17 03:27 Total Protein 4.9 g/dL (6.4-8.2) L 03/13/17 03:27 Albumin 1.9 g/dL (3.4-5.0) L 03/13/17 03:27 Globulin 3.0 g/dL (2.5-4.5) 03/13/17 03:27 Albumin/Globulin Ratio 0.6 Ratio (1.1-2.1) L 03/13/17 03:27 Specimen Type Catherized urine 03/09/17 17:00 Urine Color Yellow (YELLOW) 03/09/17 17:00 Urine Appearance Hazy (CLEAR) 03/09/17 17:00 Urine pH 5.0 (5.0 - 8.0) 03/09/17 17:00 Ur Specific [place] 1.025 (1.000-1.030) 03/09/17 17:00 Urine Protein 3+ (NEGATIVE) 03/09/17 17:00 Urine Glucose (UA) Negative (NEGATIVE) 03/09/17 17:00 Urine Ketones 2+ (NEGATIVE) 03/09/17 17:00 Urine Occult Blood 1+ (NEGATIVE) 03/09/17 17:00 Urine Nitrite Negative (NEGATIVE) 03/09/17 17:00 Urine Bilirubin Negative (NEGATIVE) 03/09/17 17:00 Urine Urobilinogen Normal (NORMAL) 03/09/17 17:00 Ur Leukocyte Esterase Negative (NEGATIVE) 03/09/17 17:00 Urine RBC 2-3 /HPF (NEGATIVE) 03/09/17 17:00 Urine WBC 0-2 /HPF (NEGATIVE) 03/09/17 17:00 Ur Squamous Epith Cells Negative /HPF (NEGATIVE) 03/09/17 17:00 Amorphous Sediment 2+ /HPF (NEGATIVE) 03/09/17 17:00 Urine Bacteria 1+ /HPF (NEGATIVE) 03/09/17 17:00 Urine Mucus Moderate /HPF (NEGATIVE) 03/09/17 17:00 Ur Culture Indicated? No/not indicated 03/09/17 17:00 Blood Type O POSITIVE 03/09/17 16:00 Antibody Screen Negative 03/09/17 16:00 Crossmatch See Detail 03/09/17 16:00 - Plan (1) Fracture, femur, subtrochanteric Status: Acute Qualifiers: Encounter type: initial encounter Fracture type: closed Open fracture type: O Fracture alignment: displaced Laterality: left Fracture healing: F Qualified Code(s): S72.22XA - Displaced subtrochanteric fracture of left femur, initial encounter for closed fracture Plan: CONTINUE POST OP PLAN OF CARE, PENDING SNF PLACEMENT FOR REHAB THERAPY (2) Back pain Status: Chronic Qualifiers: Back pain location: B Chronicity: C Back pain laterality: B Sciatica presence: S Sciatica laterality: S Plan: 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
[2017-03-13] MEDS: BACTROBAN OINT TOP SCH ×2 (15:06→22:00)
[2017-03-13] MEDS ORDERED: NS 100 ML IV 100 ML with VENOFER 200 MG IV NR ×2 (17:00)
[2017-03-13 19:14] LABS: BASOPHILS % (AUTO) 0.5 % (0.2-1.0); EOSINOPHILS # (AUTO) 0.5 x10^3/uL (0.0-0.2); EOSINOPHILS % (AUTO) 5.8 % (0.9-2.9); HEMATOCRIT 26.3 % (36.0-47.0); HEMOGLOBIN 9.3 g/dL (12.0-16.0); LYMPHOCYTES # (AUTO) 0.7 X10^3/uL (1.3-2.9); LYMPHOCYTES % (AUTO) 9.1 % (21.0-51.0); MEAN CORPUSCULAR HEMOGLOBIN 31.1 pg (27.0-34.0); MEAN CORPUSCULAR HGB CONC 35.3 g/dL (33.0-35.0); MEAN CORPUSCULAR VOLUME 87.9 fL (80.0-100.0); MEAN PLATELET VOLUME 7.8 fL (7.4-11.0); MONOCYTES # (AUTO) 0.7 x10^3/uL (0.3-0.8); MONOCYTES % (AUTO) 8.1 % (0.0-13.0); NEUTROPHILS # (AUTO) 6.1 x10^3/uL (2.2-4.8); NEUTROPHILS % (AUTO) 76.5 % (42.0-75.0); PLATELET COUNT 142 X10^3/uL (150.0-450.0); RED BLOOD COUNT 2.99 X10^6/uL (3.5-5.4); RED CELL DISTRIBUTION WIDTH 14.2 % (11.6-16.5)
[2017-03-13] MEDS: CRESTOR TAB 10 MG PO SCH (22:00)
[2017-03-13] MEDS: DESYREL PO SCH (22:00)
[2017-03-13] MEDS: PULMICORT NEB TX 0.5 MG NEB SCH (22:16)
[2017-03-14] MEDS: BACTROBAN OINT TOP SCH ×3 (05:07→21:12)
[2017-03-14] MEDS: PERCOCET TAB 5/325 MG PO SCH ×3 (05:07→21:09)
[2017-03-14] MEDS: ACCUNEB 1.25 MG NEBULE NEB SCH ×4 (05:37→23:41)
[2017-03-14 06:29] LABS: BASOPHILS % (AUTO) 0.7 % (0.2-1.0); EOSINOPHILS # (AUTO) 0.5 x10^3/uL (0.0-0.2); EOSINOPHILS % (AUTO) 7.8 % (0.9-2.9); HEMATOCRIT 22.4 % (36.0-47.0); LYMPHOCYTES # (AUTO) 0.8 X10^3/uL (1.3-2.9); LYMPHOCYTES % (AUTO) 11.9 % (21.0-51.0); MEAN CORPUSCULAR HEMOGLOBIN 30.7 pg (27.0-34.0); MEAN CORPUSCULAR HGB CONC 34.9 g/dL (33.0-35.0); MEAN PLATELET VOLUME 8.2 fL (7.4-11.0); MONOCYTES # (AUTO) 0.7 x10^3/uL (0.3-0.8); MONOCYTES % (AUTO) 10.3 % (0.0-13.0); NEUTROPHILS # (AUTO) 4.5 x10^3/uL (2.2-4.8); NEUTROPHILS % (AUTO) 69.3 % (42.0-75.0); PLATELET COUNT 139 X10^3/uL (150.0-450.0); RED BLOOD COUNT 2.54 X10^6/uL (3.5-5.4); WHITE BLOOD COUNT 6.4 X10^3/uL (3.6-10.0)
[2017-03-14 06:39] LABS: HEMOGLOBIN 7.8 g/dL (12.0-16.0)
[2017-03-14 06:51] LABS: ALANINE AMINOTRANSFERASE 12 Units/L (12-78); ALBUMIN 1.9 g/dL (3.4-5.0); ALKALINE PHOSPHATASE 58 Units/L (46-116); ASPARTATE AMINO TRANSFERASE 18 Units/L (15-37); BLOOD UREA NITROGEN 11 mg/dL (7-18); CALCIUM 8.3 mg/dL (8.5-10.1); CARBON DIOXIDE 34.1 mmol/L (21-32); CHLORIDE 106 mmol/L (98-107); CREATININE 0.87 mg/dL (0.55-1.02); GLUCOSE 95 mg/dL (65-99); SODIUM 142 mmol/L (136-145); TOTAL PROTEIN 4.8 g/dL (6.4-8.2); eGFR BLACK RACES > 60 (>60); eGFR NON BLACK RACES > 60 (>60)
[2017-03-14 07:20] LABS: HYPOCHROMASIA SLIGHT; PLATELET MORPHOLOGY COMMENT NORMAL (NORMAL)
[2017-03-14] MEDS: CYMBALTA PO SCH (08:30)
[2017-03-14] MEDS: PATIENT'S HOME MEDICATION RESPIRATORY (Oxybutynin Chloride [Ditropan Xl] 10 MG) PO SCH (08:42)
[2017-03-14] MEDS: COLACE CAP 100 MG PO SCH ×2 (08:43→21:08)
[2017-03-14] MEDS: MILK OF MAGNESIA PO SCH ×2 (08:43→21:22)
[2017-03-14] MEDS: ECOTRIN TAB 325 MG PO SCH (08:43)
[2017-03-14] MEDS: PULMICORT NEB TX 0.5 MG NEB SCH ×2 (08:50→21:00)
[2017-03-14 10:59] LABS: HEMATOCRIT 25.7 % (36.0-47.0); HEMOGLOBIN 8.8 g/dL (12.0-16.0)
[2017-03-14] MEDS: CRESTOR TAB 10 MG PO SCH (21:10)
[2017-03-14] MEDS: DESYREL PO SCH (21:16)
[2017-03-15] MEDS: PERCOCET TAB 5/325 MG PO SCH ×2 (06:07→14:23)
[2017-03-15] MEDS: BACTROBAN OINT TOP SCH (06:11)
[2017-03-15 06:13] LABS: BASOPHILS % (AUTO) 0.7 % (0.2-1.0); EOSINOPHILS # (AUTO) 0.5 x10^3/uL (0.0-0.2); HEMATOCRIT 22.9 % (36.0-47.0); LYMPHOCYTES # (AUTO) 0.6 X10^3/uL (1.3-2.9); MEAN CORPUSCULAR HEMOGLOBIN 30.8 pg (27.0-34.0); MEAN CORPUSCULAR HGB CONC 34.7 g/dL (33.0-35.0); MEAN CORPUSCULAR VOLUME 88.7 fL (80.0-100.0); MONOCYTES # (AUTO) 0.7 x10^3/uL (0.3-0.8); MONOCYTES % (AUTO) 9.9 % (0.0-13.0); NEUTROPHILS % (AUTO) 73.4 % (42.0-75.0); PLATELET COUNT 159 X10^3/uL (150.0-450.0); RED BLOOD COUNT 2.58 X10^6/uL (3.5-5.4); RED CELL DISTRIBUTION WIDTH 14.1 % (11.6-16.5); WHITE BLOOD COUNT 6.9 X10^3/uL (3.6-10.0)
[2017-03-15] MEDS: ACCUNEB 1.25 MG NEBULE NEB SCH ×2 (06:39→13:04)
[2017-03-15 06:47] LABS: ALANINE AMINOTRANSFERASE 12 Units/L (12-78); ALKALINE PHOSPHATASE 73 Units/L (46-116); ASPARTATE AMINO TRANSFERASE 22 Units/L (15-37); BLOOD UREA NITROGEN 10 mg/dL (7-18); CALCIUM 8.3 mg/dL (8.5-10.1); CARBON DIOXIDE 31.4 mmol/L (21-32); CHLORIDE 108 mmol/L (98-107); COR CA(FOR HYPOALB) 9.9 mg/dL (8.5-10.1); COR NA(FOR HYPERGLY) 144 mmol/L (136-145); GLUCOSE 111 mg/dL (65-99); SODIUM 144 mmol/L (136-145); eGFR BLACK RACES > 60 (>60); eGFR NON BLACK RACES > 60 (>60)
[2017-03-15] MEDS: PULMICORT NEB TX 0.5 MG NEB SCH (09:27)
[2017-03-15] MEDS: PATIENT'S HOME MEDICATION RESPIRATORY (Oxybutynin Chloride [Ditropan Xl] 10 MG) PO SCH (09:35)
[2017-03-15] MEDS: CYMBALTA PO SCH (09:35)
[2017-03-15] MEDS: MILK OF MAGNESIA PO SCH (09:36)
[2017-03-15] MEDS: COLACE CAP 100 MG PO SCH (09:36)
[2017-03-15] MEDS: ECOTRIN TAB 325 MG PO SCH (09:36)
[2017-03-15 12:36] VITALS: BP 186/81
[2017-03-15 13:43] LABS: HEMATOCRIT 27.3 % (36.0-47.0); HEMOGLOBIN 9.3 g/dL (12.0-16.0)
--- NOTE | 2017-03-16 16:47 | DR.H&P ---
H&P - History & Physical for Day of: H&P Date: 03/09/17 - Chief Complaint Chief Complaint: Fall - Allergies Allergies/Adverse Reactions: Allergies Allergy/AdvReac Type Severity Reaction Status Date / Time No Known Drug Allergy Allergy Verified 02/21/15 10:46 - History of Present Illness History of Present Illness: Patient fell today while at home, injured left hip. Had nerve stimulator implanted on 03/08/17. Patient states that when she got out of bed she put pressure on right foot but when she put pressure on the left extremity she fell to the floor. Had pain in left hip. Noted to have hip fx. - Past Medical History Past Medical History: Anxiety, Dyslipidemia - Past Surgical History Surgical History: Neurosurgery (Nerve stimulatory implantation), Ortho Surgery, Tonsillectomy - Social History Does patient currently use any type of tobacco product: No Have you used tobacco products in the last 12 months: No Type of Tobacco Use: None Does any household member use tobacco: No Alcohol Use: None Drug Use: None - Medications Home Medications: Albuterol Sulfate [ACCUNEB 1.25 mg NEBULE *] 1 inh INH TID 03/09/17 [History Confirmed 03/09/17] Aspirin [Aspirin Adult Low Dose] 81 mg PO DAILY 03/09/17 [History Confirmed 09/15] Budesonide-Formoterol [SYMBICORT INH 160-4.5 mcg (10.2 g) *] 1 inh INH BID 03/09 [History Confirmed 03/09/17] Docusate Sodium 200 mg PO BID 03/09/17 [History Confirmed 03/09/17] Oxycodone W/ Acetaminophen [Oxycodone/Acetaminophen 10-325 mg] 1 tab PO TID 09/15 [History Confirmed 03/09/17] Rosuvastatin Calcium 5 mg PO HS 03/09/17 [History Confirmed 03/09/17] Trazodone HCl 100 mg PO HS 03/09/17 [History Confirmed 03/09/17] Duloxetine HCl [CYMBALTA 30 MG *] 2 tabs PO DAILY 03/12/17 [History Confirmed ] - Review of Systems Constitutional: No Symptoms Reported Eyes: No Symptoms Reported ENT: No Symptoms Reported Respiratory: No Symptoms Reported Cardiovascular: No Symptoms Reported Gastrointestinal: No Symptoms Reported Genitourinary: No Symptoms Reported Musculoskeletal: Leg Pain Skin: No Symptoms Reported Neurological: No Symptoms Reported - Physical Exam Vital Signs: Temperature 98 F Pulse Rate [Left Brachial] 85 Pulse Rate [Right Brachial] 78 Pulse Rate 88 Respiratory Rate 20 Blood Pressure [Left Arm] 145/63 Blood Pressure [Right Arm] 186/81 Blood Pressure 137/64 O2 Sat by Pulse Oximetry 98 Oriented: Normal Eyes: Normal Ear: Normal Nose: Normal Throat: Normal Respiratory: Clear Throughout Cardiovascular: Normal : Normal Auscultation: Bowel Sounds: Normal Palpation: Normal Tenderness: Normal Skin: Normal Musculoskeletal: Left, Leg, Tender, Deformity Psychiatric: Normal Mood Description: Calm Affect: Normal Speech Pattern: Clear - Assessment/Plan (1) Fracture, femur, subtrochanteric Qualifiers: Encounter type: initial encounter Fracture type: closed Open fracture type: O Fracture alignment: displaced Laterality: left Fracture healing: F Qualified Code(s): S72.22XA - Displaced subtrochanteric fracture of left femur, initial encounter for closed fracture Status: Acute Plan: Ortho consult. Pain mgmt.
== END 2017-03-15 15:03 | DRG 482 ==
LOC: ER 09:47 → MED/SURG 15:45
PROVIDERS: ADMIT Internal Medicine; ATTEND Internal Medicine
PROC: 30233N1 Transfusion of Nonautologous Red Blood Cells into Peripheral Vein, Percutaneous Approach (ICD-10-PCS; 2017-03-09)
PROC: 0QS906Z Reposition Left Femoral Shaft with Intramedullary Internal Fixation Device, Open Approach (ICD-10-PCS; principal; 2017-03-09 16:00)
PROC: 30233N1 Transfusion of Nonautologous Red Blood Cells into Peripheral Vein, Percutaneous Approach (ICD-10-PCS; 2017-03-11)
DX: S72.22XA Displaced subtrochanteric fracture of left femur, initial encounter for closed fracture (principal); W17.89XA Other fall from one level to another, initial encounter; Y92.003 Bedroom of unspecified non-institutional (private) residence as the place of occurrence of the external cause; F41.8 Other specified anxiety disorders; E78.2 Mixed hyperlipidemia; D64.89 Other specified anemias; M54.5 Low back pain; R26.89 Other abnormalities of gait and mobility
CPT/HCPCS: 36415; 36430; 73501; 73552; 73700; 76000; 80048; 80053; 81001; 82728; 83540; 83550; 85014; 85018; 85025; 86850; 86900; 86901; 86922; 87070; 87075; 87205; 93005; 93010; 94640; 94760; 96365; 96374; 96375; 97535; 99100; 99284; A4216; A4222; P9016; J0330; J0690; J1170; J2001; J2270; J2405; J2710; J3010; J3490; J7120; J7613; J7626

== ENCOUNTER 2017-03-20 10:30 | Emergency (ER) | payer OTHER ==
[2017-03-20 10:34] VITALS: BMI 28.7
--- NOTE | 2017-03-20 10:53 | DR.GENAD ---
HPI - PCP Primary Care Physician: Nathaniel - HPI Comment HPI Comment: PATIENT IS S/P LEFT HIP AND FEMUR FRACTURE SURGERY 03/09/2017 [place] HAD SYNCOPAL EPISODES TWICE TODAY WHILE HAVING BOWEL MOVEMENT. DID NOT FALL. DENIES CHEST PAIN. PAIN IN FRACTURE AREAS. WEAK SINCE SURGERY. - Complaint/Symptoms Chief Complaint Doctors Comments: PATIENT PASS OUT TWICE WHILE HAVING BOWEL MOVEMENT AT [facility] BEFORE COMING. Chief Complaint:: Staff at the intermediate stated that pt was having a bowel movement and passed out x 2. Pt c/o vomiting - Nurses notes reviewed Nurses Notes Review: Yes - Source History Provided: Patient - Mode of Arrival Mode of Arrival: Stretcher - Timing Onset of Chief Complaint: 03/20/17 Came on: Suddenly - Duration Duration: Since Onset Duration: Minutes - Severity Severity: Moderate PMH - PMH Past Medical History: Yes Past Medical History: Anxiety, Dyslipidemia Past Surgical History: Yes Surgical History: Ortho Surgery, Tonsillectomy - Family History History of Family Medical Conditions: No - Social History Does patient currently use any type of tobacco product: No Have you used tobacco products in the last 12 months: No Type of Tobacco Use: None Does any household member use tobacco: No Alcohol Use: None Do you use any recreational Drugs:: No Lives With: Other Lives Where: [facility] - infectious screening In the last 2 months have you had wt loss of >10#?: NO Have you had fever, night sweats or hemotysis?: No Have you traveled outside the country in the last 6 months?: No Isolation: Standard ROS - Review of Systems Constitutional: Weakness, Fatigue, Loss of Appetite. negative: Chills, Fever Eyes: No Symptoms Reported. negative: Eye Pain, Discharge ENTM: No Symptoms Reported. negative: Ear Pain, Nose Discharge, Nose Congestion , Throat Pain Respiratoy: Non-Productive Cough, Short of Breath (ON EXERTION.). negative: Wheezing, Hemoptysis Cardiovascular: Edema, Syncope. negative: Chest Pain, Palpitations Gastrointestinal/Abdominal: No Symptoms Reported, Nausea, Vomiting. negative: Abdominal Pain Genitourinary: No Symptoms Reported. negative: Dysuria, Frequency, Hematuria Neurological: Weakness. negative: Headache, Dizziness Musculoskeletal: Hip, Knee Integumentary: Bruises Hematologic/Lymphatic: Easy Bruising Endocrine: No Symptoms Reported All Other Systems: Reviewed and Negative PE - Vital Signs Vitals: Temperature 96.6 F Pulse Rate 92 Respiratory Rate 18 Blood Pressure [Left Arm] 145/63 Blood Pressure [Right Arm] 186/81 Blood Pressure 116/68 O2 Sat by Pulse Oximetry 96 - General Limitations: No Limitations General Appearance: Alert - Head Head Exam: Normal Inspection - Eyes Eye exam: Normal Appearance - ENT ENT Exam: Normal External Ear Exam External Ear Exam: Normal External Inspection TM/Canal Exam: Bilateral Normal Nose Exam: Normal Nose Exam Mouth Exam: Normal Inspection Throat Exam: Normal Inspection - Neck Neck Exam: Trachea Midline - Chest Chest Inspection: Symmetric Chest Wall Rise - Respiratory Respiratory Exam: negative: Chest Wall Tenderness, Respiratory Distress Respiratory Exam: Bilateral Rhonchi, Lower Rhonchi - Cardiovascular Cardiovascular Exam: Regular Rate, Normal Rhythm, Normal Heart Sounds - Abdominal Exam Abdominal Exam: Normal Bowel Sounds, Soft. negative: Tenderness - Extremities Extremities Exam: Tenderness (LEFT HIP AND PELVIC), Joint Swelling (LEFT HIP SWOLLEN AND TENDER.). negative: Full ROM (DECREASE) - Back Back Exam: Paraspinal Tenderness - Neurologic Neurological Exam: Alert, Oriented X3. negative: Motor Sensory Deficit - Psychiatric Psychiatric Exam: Anxious - Skin Skin Exam: Erythema MDM - Additional Information Additional Information Obtained From: Family - Differential Diagnosis Differential Diagnosis: SYNCOPAL EPISODE, HEALING LT HIP FRACTURE Course - Treatment Treatment: SEE ORDERS. - Consultation Consultation Comments: DR. GRANGER CAME TO ED AND EXAM PATIENT AND REPEAT XRAYS. CONCLUDED THAT NO ACUTE DAMAGE WAS NOTED. ORTHOPEDIC MANAMENT WILL PROCEED UNCHANGE. DISCUSS PATIENT WITH DR. VALENZUELA. HE WILL ADMIT PATIENT. - Education/Counseling Education/Counseling: Patient, Family, Education Educated On: Diagnosis, Needs for Follow Up ROR - Labs Reviewed Laboratory Results Reviewed?: Yes Result Diagrams: 03/21/17 04:50 03/21/17 04:50 Laboratory: WBC 10.9 X10^3/uL (3.6-10.0) H 03/20/17 11:15 RBC 3.73 X10^6/uL (3.5-5.4) 03/20/17 11:15 Hgb 11.4 g/dL (12.0-16.0) L 03/20/17 11:15 Hct 33.3 % (36.0-47.0) L 03/20/17 11:15 MCV 89.1 fL (80.0-100.0) 03/20/17 11:15 MCH 30.4 pg (27.0-34.0) 03/20/17 11:15 MCHC 34.1 g/dL (33.0-35.0) 03/20/17 11:15 RDW 14.5 % (11.6-16.5) 03/20/17 11:15 Plt Count 386 X10^3/uL (150.0-450.0) 03/20/17 11:15 MPV 7.2 fL (7.4-11.0) L 03/20/17 11:15 Neut % 85.5 % (42.0-75.0) H 03/20/17 11:15 Lymph % 5.9 % (21.0-51.0) L 03/20/17 11:15 [place] % 4.8 % (0.0-13.0) 03/20/17 11:15 Eos % 3.4 % (0.9-2.9) H 03/20/17 11:15 Baso % 0.4 % (0.2-1.0) 03/20/17 11:15 Neut # 9.3 x10^3/uL (2.2-4.8) H 03/20/17 11:15 Lymph # 0.6 X10^3/uL (1.3-2.9) L 03/20/17 11:15 [place] # 0.5 x10^3/uL (0.3-0.8) 03/20/17 11:15 Eos # 0.4 x10^3/uL (0.0-0.2) H 03/20/17 11:15 Baso # 0.0 X10^3/uL (0.0-0.1) 03/20/17 11:15 Absolute Nucleated RBC 0.0 /100WBC 03/20/17 11:15 Sodium 140 mmol/L (136-145) 03/20/17 11:15 Corrected Sodium 141 mmol/L (136-145) 03/20/17 11:15 Potassium 4.0 mmol/L (3.5-5.1) 03/20/17 11:15 Chloride 102 mmol/L (98-107) 03/20/17 11:15 Carbon Dioxide 30.7 mmol/L (21-32) 03/20/17 11:15 BUN 15 mg/dL (7-18) 03/20/17 11:15 Creatinine 0.94 mg/dL (0.55-1.02) 03/20/17 11:15 Est GFR (MDRD) Af Amer > 60 (>60) 03/20/17 11:15 Est GFR (MDRD) Non-Af > 60 (>60) 03/20/17 11:15 Glucose 132 mg/dL (65-99) H 03/20/17 11:15 Calcium 9.3 mg/dL (8.5-10.1) 03/20/17 11:15 Corrected Calcium 10.1 mg/dL (8.5-10.1) 03/20/17 11:15 Total Bilirubin 0.80 mg/dL (0.2-1.0) 03/20/17 11:15 AST 26 Units/L (15-37) 03/20/17 11:15 ALT 23 Units/L (12-78) 03/20/17 11:15 Alkaline Phosphatase 120 Units/L (46-116) H 03/20/17 11:15 Creatine Kinase 39 Units/L (26-192) 03/20/17 11:15 CK-MB (CK-2) < 1.0 ng/mL (0-4.0) 03/20/17 11:15 CK/CKMB % Calc 2.6 % (<4) 03/20/17 11:15 Troponin I < 0.02 ng/mL (0-1.5) 03/20/17 11:15 B-Natriuretic Peptide 24.6 pg/mL (0-79) 03/20/17 11:15 Total Protein 7.1 g/dL (6.4-8.2) 03/20/17 11:15 Albumin 3.0 g/dL (3.4-5.0) L 03/20/17 11:15 Globulin 4.1 g/dL (2.5-4.5) 03/20/17 11:15 Albumin/Globulin Ratio 0.7 Ratio (1.1-2.1) L 03/20/17 11:15 - XRAY XRAY Interpreted by: Radiologist XRAY Findings: REPORT DISCUSS WITH PATIENT AND FAMILY BY DR. GRANGER IN ED. - EKG Rhythm: NSR (EKG NOTED) - Diagnosis Discharge Problem: Recent fracture of hip Syncopal episodes Qualifiers: Syncope type: unspecified Qualified Code(s): R55 - Syncope and collapse - Discharge Plan Disposition: 09 ADMITTED INPATIENT Condition: Stable - Follow ups/Referrals - Instructions
[2017-03-20 11:28] LABS: BASOPHILS % (AUTO) 0.4 % (0.2-1.0); EOSINOPHILS # (AUTO) 0.4 x10^3/uL (0.0-0.2); EOSINOPHILS % (AUTO) 3.4 % (0.9-2.9); HEMATOCRIT 33.3 % (36.0-47.0); HEMOGLOBIN 11.4 g/dL (12.0-16.0); LYMPHOCYTES # (AUTO) 0.6 X10^3/uL (1.3-2.9); LYMPHOCYTES % (AUTO) 5.9 % (21.0-51.0); MEAN CORPUSCULAR HEMOGLOBIN 30.4 pg (27.0-34.0); MEAN CORPUSCULAR HGB CONC 34.1 g/dL (33.0-35.0); MEAN CORPUSCULAR VOLUME 89.1 fL (80.0-100.0); MEAN PLATELET VOLUME 7.2 fL (7.4-11.0); MONOCYTES # (AUTO) 0.5 x10^3/uL (0.3-0.8); MONOCYTES % (AUTO) 4.8 % (0.0-13.0); NEUTROPHILS # (AUTO) 9.3 x10^3/uL (2.2-4.8); NEUTROPHILS % (AUTO) 85.5 % (42.0-75.0); PLATELET COUNT 386 X10^3/uL (150.0-450.0); RED BLOOD COUNT 3.73 X10^6/uL (3.5-5.4); RED CELL DISTRIBUTION WIDTH 14.5 % (11.6-16.5); WHITE BLOOD COUNT 10.9 X10^3/uL (3.6-10.0)
[2017-03-20 11:46] LABS: B-TYPE NATRIURETIC PEPTIDE 24.6 pg/mL (0-79)
[2017-03-20 11:49] LABS: BLOOD UREA NITROGEN 15 mg/dL (7-18); CALCIUM 9.3 mg/dL (8.5-10.1); CARBON DIOXIDE 30.7 mmol/L (21-32); CHLORIDE 102 mmol/L (98-107); COR NA(FOR HYPERGLY) 141 mmol/L (136-145); CREATININE 0.94 mg/dL (0.55-1.02); GLUCOSE 132 mg/dL (65-99); SODIUM 140 mmol/L (136-145); TROPONIN I < 0.02 ng/mL (0-1.5); eGFR BLACK RACES > 60 (>60); eGFR NON BLACK RACES > 60 (>60)
[2017-03-20 11:54] LABS: ALANINE AMINOTRANSFERASE 23 Units/L (12-78); ALKALINE PHOSPHATASE 120 Units/L (46-116); ASPARTATE AMINO TRANSFERASE 26 Units/L (15-37); CKMB % 2.6 % (<4); COR CA(FOR HYPOALB) 10.1 mg/dL (8.5-10.1); CREATINE KINASE 39 Units/L (26-192); CREATINE KINASE MB < 1.0 ng/mL (0-4.0); TOTAL PROTEIN 7.1 g/dL (6.4-8.2)
--- NOTE | 2017-03-20 12:00 | CT ---
HISTORY: Fall, altered mental status Study: CT brain without contrast Comparison: None Technique: Multiple axial images of the brain were obtained from the skull base to the vertex witho ut administration of IV contrast. AEC was utilized. Findings: No acute intraparenchymal hemorrhage or mass can be identified. No extra-axial fluid collections ar e seen. No alteration in the attenuation of the brain parenchyma can be identified to suggest acute or subacute ischemic change. The ventricular system is symmetric and nondilated. There is chronic periventricular white matter disease observed and age-appropriate generalized atrophy. Extracrania l structures are grossly unremarkable. IMPRESSION: Age-appropriate intra-axial changes of advancing chronological age without acute intracranial proces s. Reported By:
--- NOTE | 2017-03-20 12:17 | RAD ---
HISTORY: Shortness of breath Study: Chest one view Comparison: February 28, 2017 Findings: The heart is enlarged. No congestive heart failure is noted. The aorta is calcified. The agustina are no rmal. The lung treviño are clear. There is a spinal cord stimulator at the lower thoracic level. IMPRESSION: Cardiomegaly without congestive heart failure Lungs clear Reported By:
--- NOTE | 2017-03-20 12:32 | CT ---
HISTORY: Injury, fall, neck pain Study: CT cervical spine without con Comparison: None Technique: Axial non contrast images with coronal and sagittal reformats. Dose reduction procedures were use with MA/kv adjusted for body size. Findings: The bones are osteopenic. The alignment is normal with the exception of minimal anterolisthesis C3 o n C4. The vertebral bodies are of average height. Degenerative disc disease is present at C4-5, C5-6 , C6-7. The pedicles, spinous processes, and posterior elements appear intact. Spondylitic foraminal narrowing is present at C3-4 on the left, C4-5 and C5-6 bilaterally. Diffuse bilateral facet degene rative joint disease is present. Uncovertebral joint degenerative joint disease is present bilateral ly C4-5, C5-6, C6-7. The odontoid is intact. There is no definite evidence for fracture or dislocati on IMPRESSION: No definite evidence for fracture or dislocation Osteopenia Degenerative disc and bilateral uncovertebral joint degenerative joint disease C4-5, C5-6, C6-7. Diffuse bilateral facet degenerative joint disease Reported By:
--- NOTE | 2017-03-20 12:54 | RAD ---
HISTORY: Left hip pain status post left hip fracture repair, possible referred pain Study: Left knee two view Comparison: None Findings: An intra medullary diana can be seen in the femoral shaft. Examination of the knee joint and demonstra vikram no acute bone or acute joint abnormality. No fracture, lytic, or blastic lesion is identified. N o joint erosion or joint effusion is present. There is mild medial and lateral compartment narrowing likely degenerative in origin. IMPRESSION: Mild medial and lateral compartment narrowing likely degenerative in origin Reported By:
--- NOTE | 2017-03-20 12:55 | RAD ---
HISTORY: Left hip pain status post fracture repair Study: Left hip two views Comparison: March 09, 2017 Findings: The patient is status post open reduction internal fixation of an intertrochanteric fracture of the left femoral neck with a compression screw an intra medullary diana. Position and alignment is unchang ed when compared with the prior examination. Up. The left hip joint is intact. The bones are osteope leanna. IMPRESSION: Osteopenia Status post open reduction, internal fixation intertrochanteric fracture left hip Reported By:
--- NOTE | 2017-03-20 12:57 | RAD ---
HISTORY: Left hip pain status post left hip fracture repair Study: Left femur two view Comparison: March 09, 2017 Findings: The patient is status post open reduction and internal fixation of an intertrochanteric hip fracture . There is avulsion of the lesser trochanter and extension of the fracture into the proximal femoral shaft. Position and alignment status post open reduction internal fixation within intra medullary r od and compression screw are unchanged. IMPRESSION: No significant change from the prior examination Reported By:
[2017-03-20] MEDS ORDERED: NS 1000 ML 1,000 ML ONE (14:38)
[2017-03-20] MEDS: NS 1000 ML 1,000 ML IV SCH (14:51)
[2017-03-20] MEDS ORDERED: ZOFRAN INJ 4 MG VIAL IVP PRN (16:44)
[2017-03-20 16:50] LABS: BILIRUBIN,URINE NEGATIVE (NEGATIVE); BLOOD/HEMOGLOBIN,URINE NEGATIVE (NEGATIVE); GLUCOSE, URINE NEGATIVE (NEGATIVE); KETONES,URINE NEGATIVE (NEGATIVE); LEUKOCYTE ESTERASE ,URINE NEGATIVE (NEGATIVE); NITRITES,URINE NEGATIVE (NEGATIVE); PROTEIN,URINE 1+ (NEGATIVE); UROBILINOGEN,URINE NORMAL (NORMAL)
[2017-03-20 17:13] LABS: APPEARANCE,URINE CLEAR (CLEAR); BACTERIA,URINE NEGATIVE /HPF (NEGATIVE); COLOR,URINE YELLOW (YELLOW); HYALINE CASTS, URINE FEW /LPF (NEGATIVE); MUCUS,URINE FEW /HPF (NEGATIVE); RBC,URINE NONE SEEN /HPF (NEGATIVE); SQUAMOUS EPITHELIAL CELL,UR FEW /HPF (NEGATIVE)
[2017-03-20 17:59] LABS: CKMB % 2.3 % (<4); CREATINE KINASE 44 Units/L (26-192); CREATINE KINASE MB < 1.0 ng/mL (0-4.0); TROPONIN I < 0.02 ng/mL (0-1.5)
[2017-03-20] MEDS: ACCUNEB 1.25 MG NEBULE NEB SCH (20:48)
[2017-03-20] MEDS: PULMICORT NEB TX 0.5 MG NEB SCH (20:48)
[2017-03-20] MEDS ORDERED: SYMBICORT INH 160/4.5 mcg IN SCH (21:00)
[2017-03-20] MEDS: COLACE CAP 100 MG PO SCH (21:51)
[2017-03-20] MEDS: VALIUM PO PRN (21:51)
[2017-03-20] MEDS: DESYREL PO SCH (21:51)
[2017-03-20] MEDS: CRESTOR TAB 10 MG PO SCH (21:52)
[2017-03-20] MEDS: PERCOCET TAB 5/325 MG PO PRN (21:52)
[2017-03-21 00:36] LABS: CKMB % 3.5 % (<4); CREATINE KINASE 29 Units/L (26-192); CREATINE KINASE MB < 1.0 ng/mL (0-4.0); TROPONIN I < 0.02 ng/mL (0-1.5)
[2017-03-21 05:21] LABS: BASOPHILS # (AUTO) 0.1 X10^3/uL (0.0-0.1); BASOPHILS % (AUTO) 0.8 % (0.2-1.0); EOSINOPHILS # (AUTO) 0.5 x10^3/uL (0.0-0.2); EOSINOPHILS % (AUTO) 5.8 % (0.9-2.9); HEMATOCRIT 26.5 % (36.0-47.0); HEMOGLOBIN 9.3 g/dL (12.0-16.0); LYMPHOCYTES % (AUTO) 12.8 % (21.0-51.0); MEAN CORPUSCULAR HEMOGLOBIN 31.7 pg (27.0-34.0); MEAN CORPUSCULAR HGB CONC 35.1 g/dL (33.0-35.0); MEAN CORPUSCULAR VOLUME 90.3 fL (80.0-100.0); MEAN PLATELET VOLUME 7.1 fL (7.4-11.0); MONOCYTES # (AUTO) 0.7 x10^3/uL (0.3-0.8); MONOCYTES % (AUTO) 8.1 % (0.0-13.0); NEUTROPHILS # (AUTO) 5.8 x10^3/uL (2.2-4.8); NEUTROPHILS % (AUTO) 72.5 % (42.0-75.0); PLATELET COUNT 312 X10^3/uL (150.0-450.0); RED BLOOD COUNT 2.94 X10^6/uL (3.5-5.4); RED CELL DISTRIBUTION WIDTH 14.6 % (11.6-16.5); WHITE BLOOD COUNT 8.1 X10^3/uL (3.6-10.0)
[2017-03-21] MEDS: NS 1000 ML 1,000 ML IV SCH (05:26)
[2017-03-21 05:35] LABS: ALANINE AMINOTRANSFERASE 16 Units/L (12-78); ALBUMIN 2.5 g/dL (3.4-5.0); ALKALINE PHOSPHATASE 102 Units/L (46-116); ASPARTATE AMINO TRANSFERASE 20 Units/L (15-37); BLOOD UREA NITROGEN 18 mg/dL (7-18); CALCIUM 8.7 mg/dL (8.5-10.1); CARBON DIOXIDE 28.5 mmol/L (21-32); CHLORIDE 107 mmol/L (98-107); COR CA(FOR HYPOALB) 9.9 mg/dL (8.5-10.1); CREATININE 0.89 mg/dL (0.55-1.02); GLUCOSE 110 mg/dL (65-99); SODIUM 140 mmol/L (136-145); TOTAL PROTEIN 5.7 g/dL (6.4-8.2); eGFR BLACK RACES > 60 (>60); eGFR NON BLACK RACES > 60 (>60)
[2017-03-21] MEDS: ACCUNEB 1.25 MG NEBULE NEB SCH ×3 (06:17→20:36)
[2017-03-21] MEDS: ASPIRIN EC 81 MG PO SCH (08:31)
[2017-03-21] MEDS: COLACE CAP 100 MG PO SCH ×2 (08:31→20:45)
[2017-03-21] MEDS: PERCOCET TAB 5/325 MG PO PRN ×2 (08:35→20:46)
[2017-03-21] MEDS: CYMBALTA PO SCH (08:47)
[2017-03-21] MEDS: PULMICORT NEB TX 0.5 MG NEB SCH ×2 (08:58→20:35)
--- NOTE | 2017-03-21 13:37 | DR.H&P ---
H&P - History & Physical for Day of: H&P Date: 03/20/17 - Chief Complaint Chief Complaint: SYNCOPE - Allergies Allergies/Adverse Reactions: Allergies Allergy/AdvReac Type Severity Reaction Status Date / Time No Known Drug Allergy Allergy Verified 02/21/15 10:46 - History of Present Illness History of Present Illness: THIS IS AN 86 YEAR OLD FEMALE, WHO IS A NEW PATIENT OF OURS. SHE IS CURRENTLY AT [facility] FOR REHAB FOLLOWING AN ORIF TO LEFT HIP AFTER A FRACTURE ON 03/09/17. SENIOR LIVING STAFF REPORTS PATIENT PASSED OUT TWICE WHILE HAVING A BOWEL MOVEMENT. PATIENT WAS ALSO NOTED WITH NAUSEA AND VOMITING PRIOR TO ARRIVAL. STAFF REPORTS PATIENT DID NOT FALL WITH SYNCOPAL EPISODES. PATIENT REPORTS PAIN TO LEFT HIP AND STATES SHE HAS BEEN WEAK SINCE SURGERY. LABS, CT, XRAYS OBTAINED. CBC WNL EXCEPT: WBC 10.9, H /H 11.4/33.3. CMP WNL EXCEPT: GLUCOSE 132, ALK PHOS 120, ALBUMIN 3.0. CHEST XRAY REPORTS CARDIOMEGALY WITHOUT CHF; LUNGS CLEAR. BRAIN CT REPORTS AGE- APPROPRIATE INTRA-AXIAL CHANGES OF ADVANCING CHRONOLOGICAL AGE WITHOUT ACUTE INTRACRANIAL PROCESS. CT OF C-SPINE NO DEFINITE EVIDENCE FOR FRACTURE OR DISLOCATION; OSTEOPENIA; DEGENERATIVE DISC AND BIALTERAL UNCOVERTEBRAL JOINT DEGENERATIVE HOINT DISEASE C4-5, C5-6, C6-7; DIFFUSE BILATERAL FACET DEGENERATIVE JOINT DISEASE. LEFT FEMUR XRAY REPORTS NO SIGNIFICANT CHANGE FROM PRIOR. LEFT HIP XRAY REPORTS S/P OPEN REDUCTION, INTERNAL FIXATION INTERTROCHANTERIC FRACTURE LEFT HIP. LEFT KNEE XRAY REPORTS MILD MEDIAL AND LATERAL COMPARTMENT NARROWING LIKELY DEGENERATIVE IN ORIGIN. EKG REPORTS SINUS RHYHTM, RATE 79. WE WILL ADMIT PATIENT TO HOSPITAL FOR FURTHER TREATMENT AND EVALUATION. WE WILL MONITOR PATIENT ON TELEMETRY AND OBTAIN SERIAL CARDIAC ENZYMES AND EKG'S. WE WILL START IV FLUIDS, ANTI-EMETICS, AND FOLLOW UP IN AM WITH LABS. - Past Medical History Past Medical History: Anxiety, COPD, Depression, Dyslipidemia Additional Medical History: Cataracts, Back Pain, Left Hip/Femur Fracture, Constipation - Past Surgical History Surgical History: Ortho Surgery, Tonsillectomy Additional Surgical History: Back Stimulator - Social History Does patient currently use any type of tobacco product: No Have you used tobacco products in the last 12 months: No Type of Tobacco Use: None Does any household member use tobacco: No Alcohol Use: None Drug Use: None - Medications Home Medications: Albuterol Sulfate [ACCUNEB 1.25 mg NEBULE *] 1 nebule INH TID 03/09/17 Aspirin [Aspirin Adult Low Dose] 81 mg PO DAILY 03/09/17 Budesonide-Formoterol [SYMBICORT INH 160-4.5 mcg (10.2 g) *] 1 inh INH BID 09/15 Docusate Sodium 200 mg PO BID 03/09/17 Rosuvastatin Calcium 5 mg PO HS 03/09/17 Trazodone HCl 100 mg PO HS 03/09/17 Duloxetine HCl [CYMBALTA 30 MG *] 2 tabs PO DAILY 03/12/17 Diazepam [VALIUM 5 MG *] 2.5 mg PO HS PRN #15 tab 03/15/17 Oxycodone/Acet 5 mg/325 mg [PERCOCET 5/325 MG *] 1 tab PO Q6H PRN 03/20/17 - Review of Systems Constitutional: Weakness, Malaise. denies: Fever, Chills Eyes: No Symptoms Reported. denies: Pain, Vision Change, Conjunctivae Inflammation, Eyelid Inflammation, Redness ENT: No Symptoms Reported. denies: Ear Pain, Ear Discharge, Nose Pain, Nose Discharge, Nose Congestion, Mouth Pain, Mouth Swelling, Throat Pain, Throat Swelling Respiratory: No Symptoms Reported. denies: Cough, Shortness of Breath, Hemoptysis, SOB with Excertion, Pleuritic Pain, Sputum, Wheezing Cardiovascular: Light Headedness, Other (Syncope). denies: Chest Pain, Palpitations, Orthopnea, Paroxysmal Noc. Dyspnea, Edema Gastrointestinal: Nausea, Vomiting. denies: Abdominal Pain, Diarrhea, Constipation, Melena, Hematochezia Genitourinary: No Symptoms Reported. denies: Dysuria, Frequency, Incontinence, Hematuria, Retention Musculoskeletal: Leg Pain (Left) Skin: Wound (Left Hip Surgical Incision) Neurological: No Symptoms Reported. denies: Weakness, Numbness, Incoordination , Change in Speech, Confusion, Seizures - Physical Exam Vital Signs: Temperature 97.8 F Pulse Rate [Right Brachial] 68 Respiratory Rate 20 Blood Pressure [Right Arm] 138/54 O2 Sat by Pulse Oximetry 92 Oriented: Normal, Time, Person, Place Eyes: Normal. negative: Blurred Vision, Diplopia, Discharge, Pain, Redness, Photophobia Ear: Normal. negative: Swelling, Ecchymosis, Hemotypanum, Abrasion, Laceration Nose: Normal. negative: Injected, Discharge, Blood Throat: Normal. negative: Tonsillar Hypertrophy, Red, Exudate Respiratory: Clear Throughout Cardiovascular: Normal. negative: Murmur, Edema : Normal. negative: Dysuria, Hematuria, Frequency, Discharge, Bleeding, Auscultation: Bowel Sounds: Normal. negative: Bruit Palpation: Normal. negative: Spleen Enlarged, Liver Enlarged, Mass Pulsatile Tenderness: Normal. negative: Rebound, Guarding, Rigidity Skin: Decreased Turgur, Wound (Surgical Incision Left Hip). negative: Diaphoresis, Bruising, Ecchymosis Musculoskeletal: Instability Psychiatric: Normal Mood Description: Calm, Appropriate Affect: Normal Speech Pattern: Clear, Appropriate - Assessment/Plan (1) Syncopal episodes Qualifiers: Syncope type: vasovagal syncope Encounter type: E Qualified Code(s): R55 - Syncope and collapse Status: Acute Plan: ADMIT PATIENT, START IV FLUIDS, MONITOR ON TELEMETRY, SERIAL CARDIAC ENZYMES AND EKG'S, MONITOR. (2) Recent fracture of hip Status: Acute Plan: CONTINUE WOUND CARE, PAIN MANAGEMENT, MONITOR. (3) Left hip pain Status: Acute Plan: ABOVE. (4) Left leg pain Status: Acute Plan: ABOVE. (5) Back pain Qualifiers: Back pain location: low back pain Chronicity: chronic Back pain laterality: bilateral Sciatica presence: without sciatica Sciatica laterality: S Qualified Code(s): M54.5 - Low back pain; G89.29 - Other chronic pain Status: Chronic
--- NOTE | 2017-03-21 14:31 | PCM.PROG ---
Progress Note - Progress Note for Day of Date: 03/21/17 - Subjective Subjective: PATIENT RESTS IN BED AND HAS NO FURTHER SYNCOPAL EPISODES. PATIENT IS DOING FAIR AND REPORTS PAIN TO LEFT HIP, BUT IS WITH PLEASANT AFFECT. PATIENT IS MONITORED ON TELEMETRY. CARDIAC ENZYMES WNL. EKG: SINUS RHYTHM, RATE 74. CBC WNL EXCEPT: H/H 9.3/26.5. CMP WNL EXCEPT: GLUCOSE 110, TOT PROTEIN 5.7, ALBUMIN 2.5. WE WILL CONTINUE TO MONITOR ON TELEMETRY AND PLAN FOR AN ECHO TOMORROW. WE WILL FOLLOW UP IN AM WITH LABS. - Past Medical Family Social History Past Med/Fam/Surg Hx: No changes since H&P Allergies: Allergies No Known Drug Allergy Allergy (Verified 02/21/15 10:46) - Review of Systems ROS: No change since H&P - Vital Signs and I&O's Vital Signs: Temperature 97.8 F Pulse Rate [Right Brachial] 68 Respiratory Rate 20 Blood Pressure [Right Arm] 138/54 O2 Sat by Pulse Oximetry 92 Intake and Output: Intake & Output 03/19/17 03/20/17 03/21/17 03/22/17 11:59 11:59 11:59 11:59 Intake Total 1869 Output Total 250 Balance 1619 - Physical Exam Oriented: Normal, Time, Person, Place Eyes: Normal. negative: Blurred Vision, Diplopia, Discharge, Pain, Redness, Photophobia Ear: Normal. negative: Swelling, Ecchymosis, Hemotypanum, Abrasion, Laceration Nose: Normal. negative: Injected, Discharge, Blood Throat: Normal. negative: Tonsillar Hypertrophy, Red, Exudate Respiratory: Normal Cardiovascular: Normal. negative: Murmur, Edema : Normal. negative: Dysuria, Hematuria, Frequency, Discharge, Bleeding, Auscultation: Bowel Sounds: Normal. negative: Bruit Palpation: Normal Tenderness: Normal. negative: Rebound, Guarding, Rigidity Skin: Normal, Wound (Surgical Incision Left Hip). negative: Diaphoresis, Bruising, Ecchymosis Musculoskeletal: Instability Psychiatric: Normal Mood Description: Calm, Appropriate Affect: Normal Speech Pattern: Clear, Appropriate - Laboratory and Diagnostics Result Diagrams: 03/21/17 04:50 03/21/17 04:50 Labs: Laboratory WBC 8.1 X10^3/uL (3.6-10.0) 03/21/17 04:50 RBC 2.94 X10^6/uL (3.5-5.4) L 03/21/17 04:50 Hgb 9.3 g/dL (12.0-16.0) L 03/21/17 04:50 Hct 26.5 % (36.0-47.0) L 03/21/17 04:50 MCV 90.3 fL (80.0-100.0) 03/21/17 04:50 MCH 31.7 pg (27.0-34.0) 03/21/17 04:50 MCHC 35.1 g/dL (33.0-35.0) H 03/21/17 04:50 RDW 14.6 % (11.6-16.5) 03/21/17 04:50 Plt Count 312 X10^3/uL (150.0-450.0) 03/21/17 04:50 MPV 7.1 fL (7.4-11.0) L 03/21/17 04:50 Neut % 72.5 % (42.0-75.0) 03/21/17 04:50 Lymph % 12.8 % (21.0-51.0) L 03/21/17 04:50 [place] % 8.1 % (0.0-13.0) 03/21/17 04:50 Eos % 5.8 % (0.9-2.9) H 03/21/17 04:50 Baso % 0.8 % (0.2-1.0) 03/21/17 04:50 Neut # 5.8 x10^3/uL (2.2-4.8) H 03/21/17 04:50 Lymph # 1.0 X10^3/uL (1.3-2.9) L 03/21/17 04:50 [place] # 0.7 x10^3/uL (0.3-0.8) 03/21/17 04:50 Eos # 0.5 x10^3/uL (0.0-0.2) H 03/21/17 04:50 Baso # 0.1 X10^3/uL (0.0-0.1) 03/21/17 04:50 Absolute Nucleated RBC 0.0 /100WBC 03/21/17 04:50 Sodium 140 mmol/L (136-145) 03/21/17 04:50 Corrected Sodium TNP 03/21/17 04:50 Potassium 4.3 mmol/L (3.5-5.1) 03/21/17 04:50 Chloride 107 mmol/L (98-107) 03/21/17 04:50 Carbon Dioxide 28.5 mmol/L (21-32) 03/21/17 04:50 BUN 18 mg/dL (7-18) 03/21/17 04:50 Creatinine 0.89 mg/dL (0.55-1.02) 03/21/17 04:50 Est GFR (MDRD) Af Amer > 60 (>60) 03/21/17 04:50 Est GFR (MDRD) Non-Af > 60 (>60) 03/21/17 04:50 Glucose 110 mg/dL (65-99) H 03/21/17 04:50 Calcium 8.7 mg/dL (8.5-10.1) 03/21/17 04:50 Corrected Calcium 9.9 mg/dL (8.5-10.1) 03/21/17 04:50 Total Bilirubin 0.70 mg/dL (0.2-1.0) 03/21/17 04:50 AST 20 Units/L (15-37) 03/21/17 04:50 ALT 16 Units/L (12-78) 03/21/17 04:50 Alkaline Phosphatase 102 Units/L (46-116) 03/21/17 04:50 Creatine Kinase 29 Units/L (26-192) 03/20/17 23:58 CK-MB (CK-2) < 1.0 ng/mL (0-4.0) 03/20/17 23:58 CK/CKMB % Calc 3.5 % (<4) 03/20/17 23:58 Troponin I < 0.02 ng/mL (0-1.5) 03/20/17 23:58 B-Natriuretic Peptide 24.6 pg/mL (0-79) 03/20/17 11:15 Total Protein 5.7 g/dL (6.4-8.2) L 03/21/17 04:50 Albumin 2.5 g/dL (3.4-5.0) L 03/21/17 04:50 Globulin 3.2 g/dL (2.5-4.5) 03/21/17 04:50 Albumin/Globulin Ratio 0.8 Ratio (1.1-2.1) L 03/21/17 04:50 Specimen Type Clean catch urine 03/20/17 16:24 Urine Color Yellow (YELLOW) 03/20/17 16:24 Urine Appearance Clear (CLEAR) 03/20/17 16:24 Urine pH 7.0 (5.0 - 8.0) 03/20/17 16:24 Ur Specific [place] 1.010 (1.000-1.030) 03/20/17 16:24 Urine Protein 1+ (NEGATIVE) 03/20/17 16:24 Urine Glucose (UA) Negative (NEGATIVE) 03/20/17 16:24 Urine Ketones Negative (NEGATIVE) 03/20/17 16:24 Urine Occult Blood Negative (NEGATIVE) 03/20/17 16:24 Urine Nitrite Negative (NEGATIVE) 03/20/17 16:24 Urine Bilirubin Negative (NEGATIVE) 03/20/17 16:24 Urine Urobilinogen Normal (NORMAL) 03/20/17 16:24 Ur Leukocyte Esterase Negative (NEGATIVE) 03/20/17 16:24 Urine RBC None seen /HPF (NEGATIVE) 03/20/17 16:24 Urine WBC None seen /HPF (NEGATIVE) 03/20/17 16:24 Ur Squamous Epith Cells Few /HPF (NEGATIVE) 03/20/17 16:24 Urine Bacteria Negative /HPF (NEGATIVE) 03/20/17 16:24 Hyaline Casts Few /LPF (NEGATIVE) 03/20/17 16:24 Urine Mucus Few /HPF (NEGATIVE) 03/20/17 16:24 Ur Culture Indicated? No/not indicated 03/20/17 16:24 - Plan (1) Syncopal episodes Status: Acute Qualifiers: Syncope type: vasovagal syncope Encounter type: E Qualified Code(s): R55 - Syncope and collapse Plan: ECHO IN AM, CONTINUE IV FLUIDS, MONITOR ON TELEMETRY. (2) Recent fracture of hip Status: Acute Plan: CONTINUE WOUND CARE, PAIN MANAGEMENT, MONITOR. (3) Left hip pain Status: Acute Plan: ABOVE. (4) Left leg pain Status: Acute Plan: ABOVE. (5) Back pain Status: Chronic Qualifiers: Back pain location: low back pain Chronicity: chronic Back pain laterality: bilateral Sciatica presence: without sciatica Sciatica laterality: S Qualified Code(s): M54.5 - Low back pain; G89.29 - Other chronic pain
[2017-03-21] MEDS: CRESTOR TAB 10 MG PO SCH (20:45)
[2017-03-21] MEDS: DESYREL PO SCH (20:45)
[2017-03-21] MEDS: VALIUM PO PRN (20:46)
[2017-03-22] MEDS: NS 1000 ML 1,000 ML IV SCH (05:24)
[2017-03-22 05:27] LABS: BASOPHILS # (AUTO) 0.1 X10^3/uL (0.0-0.1); BASOPHILS % (AUTO) 1.2 % (0.2-1.0); EOSINOPHILS # (AUTO) 0.5 x10^3/uL (0.0-0.2); EOSINOPHILS % (AUTO) 6.6 % (0.9-2.9); HEMATOCRIT 25.5 % (36.0-47.0); HEMOGLOBIN 8.8 g/dL (12.0-16.0); LYMPHOCYTES # (AUTO) 0.9 X10^3/uL (1.3-2.9); LYMPHOCYTES % (AUTO) 11.5 % (21.0-51.0); MEAN CORPUSCULAR HEMOGLOBIN 31.3 pg (27.0-34.0); MEAN CORPUSCULAR HGB CONC 34.5 g/dL (33.0-35.0); MEAN CORPUSCULAR VOLUME 90.6 fL (80.0-100.0); MEAN PLATELET VOLUME 7.3 fL (7.4-11.0); MONOCYTES # (AUTO) 0.6 x10^3/uL (0.3-0.8); MONOCYTES % (AUTO) 7.7 % (0.0-13.0); NEUTROPHILS # (AUTO) 5.7 x10^3/uL (2.2-4.8); PLATELET COUNT 326 X10^3/uL (150.0-450.0); RED BLOOD COUNT 2.81 X10^6/uL (3.5-5.4); RED CELL DISTRIBUTION WIDTH 14.9 % (11.6-16.5); WHITE BLOOD COUNT 7.8 X10^3/uL (3.6-10.0)
[2017-03-22 05:39] LABS: ALANINE AMINOTRANSFERASE 14 Units/L (12-78); ALBUMIN 2.4 g/dL (3.4-5.0); ALKALINE PHOSPHATASE 107 Units/L (46-116); ASPARTATE AMINO TRANSFERASE 18 Units/L (15-37); BLOOD UREA NITROGEN 15 mg/dL (7-18); CALCIUM 8.4 mg/dL (8.5-10.1); CARBON DIOXIDE 29.7 mmol/L (21-32); CHLORIDE 106 mmol/L (98-107); COR CA(FOR HYPOALB) 9.7 mg/dL (8.5-10.1); CREATININE 0.82 mg/dL (0.55-1.02); GLUCOSE 99 mg/dL (65-99); SODIUM 141 mmol/L (136-145); TOTAL PROTEIN 5.7 g/dL (6.4-8.2); eGFR BLACK RACES > 60 (>60); eGFR NON BLACK RACES > 60 (>60)
[2017-03-22] MEDS: ACCUNEB 1.25 MG NEBULE NEB SCH (06:16)
[2017-03-22] MEDS: CYMBALTA PO SCH (08:25)
[2017-03-22] MEDS: PERCOCET TAB 5/325 MG PO PRN (08:26)
[2017-03-22] MEDS: ASPIRIN EC 81 MG PO SCH (08:26)
[2017-03-22] MEDS: COLACE CAP 100 MG PO SCH (08:27)
[2017-03-22] MEDS ORDERED: ALBUMIN HUMAN 25%- 100ML 100 ML IV SCH (09:00)
[2017-03-22] MEDS: PULMICORT NEB TX 0.5 MG NEB SCH (09:21)
[2017-03-22] MEDS: TYLENOL 500 MG TAB EXTRA STRENGTH PO SCH ×2 (10:00→13:59)
[2017-03-22 17:50] VITALS: BP 127/59
== END 2017-03-22 17:20 ==
LOC: ER 10:30 → MED/SURG 15:30
PROVIDERS: ADMIT Internal Medicine; ATTEND Internal Medicine
DX: R55 Syncope and collapse (principal); M25.552 Pain in left hip; M79.605 Pain in left leg; M54.5 Low back pain; F41.8 Other specified anxiety disorders; I51.7 Cardiomegaly; R94.31 Abnormal electrocardiogram [ECG] [EKG]; Z98.890 Other specified postprocedural states; D64.89 Other specified anemias; R26.89 Other abnormalities of gait and mobility
CPT/HCPCS: 36415; 70450; 71010; 72125; 73501; 73552; 73560; 80053; 81001; 82550; 82553; 83880; 84484; 85025; 93005; 93010; 93306; 94640; 94760; 96365; 97535; 99284; A4222; G8978; G8979; G8987; G8988; P9047; G0378; J2405; J7613; J7626

== ENCOUNTER → 2017-03-23 | Outpatient (CLI) | payer OTHER ==
[2017-03-22 17:50] VITALS: BP 127/59
[~2017-03-23] MED LIST: NS 100 ML IV 100 ML IV ONE
--- NOTE | 2017-03-23 19:21 | CT ---
CT ANGIOGRAPHY OF THE CHEST CLINICAL HISTORY: 86-year-old female with shortness of breath. COMPARISON: None. TECHNIQUE: CT angiogram of the chest was performed following the uncomplicated administration of int ravenous contrast as per routine pulmonary embolus protocol. Coronal and Sagittal reformats provided . MIP reformats in the axial, sagittal and coronal planes were performed at a separate workstation a nd submitted for review. FINDINGS: No central, segmental or subsegmental pulmonary embolus is seen. There is no thoracic aortic dissec tion. Cardiomegaly with significant atherosclerotic calcification of the coronary vessels. Severe calcific and noncalcific atherosclerotic plaque within the imaged aorta. There is no axillary or mediastina l lymphadenopathy. Small bilateral effusions, right greater the left with mild compressive atelectasis No masses or nod ules or pneumothoraces. The trachea and mainstem bronchi are patent. Imaged upper abdomen is unremarkable. Soft tissues are normal. Exaggerated thoracic kyphosis apex T8-T9 with wedging at T8 and T10 with methylmethacrylate from whit or vertebroplasty status kyphoplasty from T9-T11 as well as T12-L2. Spinal neurostimulator at the T8 -T9 level. Partially imaged thoracolumbar posterior spinal fusion construct with bilateral pedicular screws at T11 and T12 as well as L2 with vertical stabilization rods, none of which appear to be ma lfunctioning. IMPRESSION: 1. No central, segmental or subsegmental pulmonary embolus. 2. Small effusions, right greater the left with compressive atelectasis. Reported By:
== END | disposition home or self-care (01) | DRG 204 ==
LOC: RAD 15:25
PROVIDERS: ATTEND Internal Medicine
DX: R06.02 Shortness of breath (principal); J90 Pleural effusion, not elsewhere classified; J98.11 Atelectasis
CPT/HCPCS: 71275; A4222; G8978; G8979

== ENCOUNTER → 2017-03-26 | Outpatient (CLI) | payer OTHER ==
[2017-03-22 17:50] VITALS: BP 127/59
--- NOTE | 2017-03-27 15:15 | RAD ---
HISTORY: Pleural effusions Study: PA and lateral Comparison: 03/20/2017 Findings: The left ventricles mildly enlarged but unchanged. The pulmonary vessels are normal. The lungs are m ildly hyperinflated with mild linear scarring along the lung bases. No consolidation or effusion is seen. There are severe degenerative changes throughout the lower thoracic spine with prominent kypho tic deformity throughout the area . There are numerous compression fractures and associated vertebro plasties with postop changes which are unchanged. IMPRESSION: Stable chronic changes with no acute abnormality seen. Reported By:
== END ==
LOC: RAD 07:33
PROVIDERS: ATTEND Internal Medicine
DX: J90 Pleural effusion, not elsewhere classified (principal)
CPT/HCPCS: 71020

== ENCOUNTER → 2017-04-18 | Outpatient (CLI) | payer OTHER ==
[2017-03-22 17:50] VITALS: BP 127/59
--- NOTE | 2017-04-18 17:55 | RAD ---
HISTORY: Status post fracture, left flank pain Study: Left femur radiographs Comparison: 03/20/2017 Findings: Trochanteric femoral nail is in place without perihardware lucency or malalignment. Redemonstrated f ractures of the proximal left femur with stable mild fragment displacement. Partially visualized pos tsurgical changes in the spine with a spinal stimulator battery pack projected over the left hemipel vis. The soft tissues are unremarkable. IMPRESSION: 1. Stable postsurgical changes of the left femur. Reported By:
== END ==
LOC: RAD 16:25
PROVIDERS: ATTEND Orthopaedic Surgery
DX: M84.352D Stress fracture, left femur, subsequent encounter for fracture with routine healing (principal); X58.XXXD Exposure to other specified factors, subsequent encounter
CPT/HCPCS: 73552

== ENCOUNTER → 2017-06-15 | Outpatient (CLI) | payer OTHER | LOC: RAD 10:38 | PROVIDERS: ATTEND Internal Medicine | DX: Z12.31 Encounter for screening mammogram for malignant neoplasm of breast (principal) | CPT/HCPCS: 77067 ==

== ENCOUNTER → 2017-10-10 | Outpatient (CLI) | payer OTHER ==
[2017-10-10 18:04] LABS: CRYPTOSPORIDIUM PARVUM ANTIGEN NEGATIVE (NEGATIVE); GIARDIA LAMBLIA ANTIGEN NEGATIVE (NEGATIVE)
[2017-10-10 18:05] LABS: STOOL FOR WBC NEGATIVE (NEGATIVE)
== END ==
LOC: LAB 16:28
PROVIDERS: ATTEND Internal Medicine
DX: R19.7 Diarrhea, unspecified (principal)
CPT/HCPCS: 82270; 83630; 87045; 87328; 87329; 87336; 87427; 87493; 87899

== ENCOUNTER 2017-10-20 12:52 | Inpatient (IN) | payer OTHER ==
[2017-10-20 16:14] LABS: BASOPHILS % (AUTO) 0.6 % (0.2-1.0); EOSINOPHILS # (AUTO) 0.1 x10^3/uL (0.0-0.2); EOSINOPHILS % (AUTO) 1.5 % (0.9-2.9); HEMATOCRIT 36.4 % (36.0-47.0); HEMOGLOBIN 12.6 g/dL (12.0-16.0); LYMPHOCYTES % (AUTO) 12.2 % (21.0-51.0); MEAN CORPUSCULAR HEMOGLOBIN 32.1 pg (27.0-34.0); MEAN CORPUSCULAR HGB CONC 34.6 g/dL (33.0-35.0); MEAN CORPUSCULAR VOLUME 92.7 fL (80.0-100.0); MEAN PLATELET VOLUME 7.6 fL (7.4-11.0); MONOCYTES # (AUTO) 0.5 x10^3/uL (0.3-0.8); MONOCYTES % (AUTO) 6.5 % (0.0-13.0); NEUTROPHILS # (AUTO) 6.4 x10^3/uL (2.2-4.8); NEUTROPHILS % (AUTO) 79.2 % (42.0-75.0); PLATELET COUNT 257 X10^3/uL (150.0-450.0); RED BLOOD COUNT 3.92 X10^6/uL (3.5-5.4); RED CELL DISTRIBUTION WIDTH 12.8 % (11.6-16.5); WHITE BLOOD COUNT 8.1 X10^3/uL (3.6-10.0)
[2017-10-20 16:31] LABS: ALANINE AMINOTRANSFERASE 17 Units/L (12-78); ALBUMIN 3.6 g/dL (3.4-5.0); ALKALINE PHOSPHATASE 104 Units/L (46-116); ASPARTATE AMINO TRANSFERASE 17 Units/L (15-37); BLOOD UREA NITROGEN 21 mg/dL (7-18); CARBON DIOXIDE 24.5 mmol/L (21-32); CHLORIDE 105 mmol/L (98-107); CKMB % 1.9 % (<4); COR NA(FOR HYPERGLY) 140 mmol/L (136-145); CREATINE KINASE 72 Units/L (26-192); CREATINE KINASE MB 1.4 ng/mL (0-4.0); SODIUM 139 mmol/L (136-145); TOTAL PROTEIN 7.3 g/dL (6.4-8.2); TROPONIN I < 0.02 ng/mL (0-1.5); eGFR BLACK RACES 46 (>60); eGFR NON BLACK RACES 38 (>60)
[2017-10-20] MEDS: CIPRO IV 400 MG PREMIX* 400 MG/200 ML IV.SOLN. IV SCH ×2 (16:34→20:42)
[2017-10-20] MEDS: NS 1000 ML 1,000 ML IV SCH (16:34)
[2017-10-20] MEDS: PROVENTIL NEB TX 0.083% 2.5MG/ 3ML NEB SCH ×2 (16:56→20:43)
[2017-10-20 17:19] VITALS: BMI 21.2
--- NOTE | 2017-10-20 17:25 | RAD ---
Examination: Portable AP chest History: SOB Comparison reference 03/26/2017 Findings: Continued normal heart size with lungs and pleural spaces clear of active disease. Surgical findings are noted in the thoracolumbar spine. There is no evidence for pneumonia, pulmonary edema o r large pleural effusion. Impression: No change; no acute disease. Reported By:
[2017-10-20 18:19] LABS: BILIRUBIN,URINE NEGATIVE (NEGATIVE); BLOOD/HEMOGLOBIN,URINE NEGATIVE (NEGATIVE); GLUCOSE, URINE NEGATIVE (NEGATIVE); KETONES,URINE NEGATIVE (NEGATIVE); LEUKOCYTE ESTERASE ,URINE NEGATIVE (NEGATIVE); NITRITES,URINE NEGATIVE (NEGATIVE); PH,URINE 6.5 (5.0 - 8.0); PROTEIN,URINE NEGATIVE (NEGATIVE); UROBILINOGEN,URINE NORMAL (NORMAL)
[2017-10-20 18:43] LABS: APPEARANCE,URINE CLEAR (CLEAR); BACTERIA,URINE NEGATIVE /HPF (NEGATIVE); COLOR,URINE PALE YELLOW (YELLOW); RBC,URINE NONE SEEN /HPF (NEGATIVE); SQUAMOUS EPITHELIAL CELL,UR RARE /HPF (NEGATIVE)
[2017-10-20 19:59] LABS: CKMB % 2.2 % (<4); CREATINE KINASE 65 Units/L (26-192); CREATINE KINASE MB 1.4 ng/mL (0-4.0); TROPONIN I < 0.02 ng/mL (0-1.5)
[2017-10-20] MEDS: RESTORIL CAP 15 MG PO PRN (20:39)
[2017-10-20] MEDS: PULMICORT NEB TX 0.5 MG NEB SCH (20:43)
--- NOTE | 2017-10-20 23:04 | US ---
Ultrasound gallbladder Indication: Dyspnea, abdominal pain and diarrhea Technique: Dynamic grayscale Doppler imaging through the abdomen. Findings: The liver is grossly normal. The right kidney measures 9.6 cm in length. The pancreas is gr ossly where visualized. No gallstones seen. Gallbladder wall measures 2 mm. Common bile duct measures 3 mm. Impression: No evidence of acute cholecystitis or other abnormality. Reported By:
[2017-10-20 23:44] LABS: CKMB % 2.3 % (<4); CREATINE KINASE 57 Units/L (26-192); CREATINE KINASE MB 1.3 ng/mL (0-4.0); TROPONIN I < 0.02 ng/mL (0-1.5)
[2017-10-21 05:30] LABS: BASOPHILS # (AUTO) 0.1 X10^3/uL (0.0-0.1); BASOPHILS % (AUTO) 0.7 % (0.2-1.0); EOSINOPHILS # (AUTO) 0.2 x10^3/uL (0.0-0.2); EOSINOPHILS % (AUTO) 2.2 % (0.9-2.9); HEMATOCRIT 31.4 % (36.0-47.0); HEMOGLOBIN 10.7 g/dL (12.0-16.0); LYMPHOCYTES # (AUTO) 1.2 X10^3/uL (1.3-2.9); LYMPHOCYTES % (AUTO) 16.5 % (21.0-51.0); MEAN CORPUSCULAR HEMOGLOBIN 32.1 pg (27.0-34.0); MEAN CORPUSCULAR HGB CONC 34.3 g/dL (33.0-35.0); MEAN CORPUSCULAR VOLUME 93.7 fL (80.0-100.0); MEAN PLATELET VOLUME 7.7 fL (7.4-11.0); MONOCYTES # (AUTO) 0.7 x10^3/uL (0.3-0.8); MONOCYTES % (AUTO) 8.7 % (0.0-13.0); NEUTROPHILS # (AUTO) 5.4 x10^3/uL (2.2-4.8); NEUTROPHILS % (AUTO) 71.9 % (42.0-75.0); PLATELET COUNT 236 X10^3/uL (150.0-450.0); RED BLOOD COUNT 3.35 X10^6/uL (3.5-5.4); RED CELL DISTRIBUTION WIDTH 12.8 % (11.6-16.5); WHITE BLOOD COUNT 7.5 X10^3/uL (3.6-10.0)
[2017-10-21 05:40] LABS: ALANINE AMINOTRANSFERASE 16 Units/L (12-78); ALBUMIN 2.9 g/dL (3.4-5.0); ALKALINE PHOSPHATASE 76 Units/L (46-116); ASPARTATE AMINO TRANSFERASE 15 Units/L (15-37); BLOOD UREA NITROGEN 16 mg/dL (7-18); CALCIUM 8.3 mg/dL (8.5-10.1); CARBON DIOXIDE 23.7 mmol/L (21-32); CHLORIDE 109 mmol/L (98-107); COR CA(FOR HYPOALB) 9.2 mg/dL (8.5-10.1); CREATININE 1.21 mg/dL (0.55-1.02); SODIUM 141 mmol/L (136-145); TOTAL PROTEIN 6.1 g/dL (6.4-8.2); eGFR BLACK RACES 54 (>60); eGFR NON BLACK RACES 45 (>60)
[2017-10-21] MEDS: NS 1000 ML 1,000 ML IV SCH ×2 (05:53→19:05)
[2017-10-21] MEDS: CIPRO IV 400 MG PREMIX* 400 MG/200 ML IV.SOLN. IV SCH ×2 (09:05→20:32)
[2017-10-21] MEDS: PULMICORT NEB TX 0.5 MG NEB SCH ×2 (09:22→20:24)
[2017-10-21] MEDS: PROVENTIL NEB TX 0.083% 2.5MG/ 3ML NEB SCH ×4 (09:22→20:24)
[2017-10-21] MEDS: RESTORIL CAP 15 MG PO PRN (20:33)
[2017-10-21 21:50] LABS: CRYPTOSPORIDIUM PARVUM ANTIGEN NEGATIVE (NEGATIVE); GIARDIA LAMBLIA ANTIGEN NEGATIVE (NEGATIVE)
[2017-10-21] MEDS: MAALOX or MYLANTA PO PRN (22:42)
[2017-10-22] MEDS: NS 1000 ML 1,000 ML IV SCH ×3 (05:45→17:40)
[2017-10-22 06:13] LABS: BASOPHILS # (AUTO) 0.1 X10^3/uL (0.0-0.1); BASOPHILS % (AUTO) 0.7 % (0.2-1.0); EOSINOPHILS # (AUTO) 0.2 x10^3/uL (0.0-0.2); EOSINOPHILS % (AUTO) 2.8 % (0.9-2.9); HEMATOCRIT 32.5 % (36.0-47.0); HEMOGLOBIN 11.3 g/dL (12.0-16.0); LYMPHOCYTES % (AUTO) 12.6 % (21.0-51.0); MEAN CORPUSCULAR HEMOGLOBIN 32.2 pg (27.0-34.0); MEAN CORPUSCULAR HGB CONC 34.8 g/dL (33.0-35.0); MEAN CORPUSCULAR VOLUME 92.6 fL (80.0-100.0); MEAN PLATELET VOLUME 7.8 fL (7.4-11.0); MONOCYTES # (AUTO) 0.7 x10^3/uL (0.3-0.8); MONOCYTES % (AUTO) 8.5 % (0.0-13.0); NEUTROPHILS # (AUTO) 6.1 x10^3/uL (2.2-4.8); NEUTROPHILS % (AUTO) 75.4 % (42.0-75.0); PLATELET COUNT 234 X10^3/uL (150.0-450.0); RED BLOOD COUNT 3.51 X10^6/uL (3.5-5.4); RED CELL DISTRIBUTION WIDTH 13.1 % (11.6-16.5); WHITE BLOOD COUNT 8.1 X10^3/uL (3.6-10.0)
[2017-10-22 06:42] LABS: ALANINE AMINOTRANSFERASE 16 Units/L (12-78); ALBUMIN 3.1 g/dL (3.4-5.0); ALKALINE PHOSPHATASE 84 Units/L (46-116); ASPARTATE AMINO TRANSFERASE 17 Units/L (15-37); BLOOD UREA NITROGEN 8 mg/dL (7-18); CALCIUM 8.2 mg/dL (8.5-10.1); CARBON DIOXIDE 20.8 mmol/L (21-32); CHLORIDE 110 mmol/L (98-107); COR CA(FOR HYPOALB) 8.9 mg/dL (8.5-10.1); CREATININE 0.93 mg/dL (0.55-1.02); SODIUM 142 mmol/L (136-145); TOTAL PROTEIN 6.4 g/dL (6.4-8.2); eGFR BLACK RACES > 60 (>60); eGFR NON BLACK RACES > 60 (>60)
[2017-10-22] MEDS: CIPRO IV 400 MG PREMIX* 400 MG/200 ML IV.SOLN. IV SCH ×2 (08:57→20:39)
[2017-10-22] MEDS: PROVENTIL NEB TX 0.083% 2.5MG/ 3ML NEB SCH ×4 (09:13→21:08)
[2017-10-22] MEDS: PULMICORT NEB TX 0.5 MG NEB SCH ×2 (09:13→21:08)
[2017-10-22] MEDS ORDERED: PATIENT'S HOME MEDICATION (Aspirin [Aspirin] 81 MG) PO SCH (12:45)
[2017-10-22] MEDS: TYLENOL 500 MG TAB EXTRA STRENGTH PO SCH ×3 (13:42→20:40)
[2017-10-22] MEDS: OXYBUTYNIN CHLORIDE ER PO SCH (13:43)
[2017-10-22] MEDS ORDERED: MACROBID CAP 100 MG EXT REL PO ONE ×2 (15:42→16:01)
[2017-10-22] MEDS: MACRODANTIN 50 MG CAP PO SCH ×2 (16:13→22:15)
[2017-10-22] MEDS: MAALOX or MYLANTA PO PRN (17:30)
[2017-10-22] MEDS: CRESTOR TAB 10 MG PO SCH (20:40)
[2017-10-22] MEDS: DESYREL PO SCH (20:41)
[2017-10-22] MEDS: RESTORIL CAP 15 MG PO PRN (20:42)
[2017-10-22] MEDS ORDERED: PATIENT'S HOME MEDICATION (Trazodone Hcl [Trazodone Hcl] 150 MG) PO SCH (21:00)
[2017-10-22] MEDS ORDERED: ROSUVASTATIN CALCIUM 5 MG PO SCH (21:00)
[2017-10-23 05:29] LABS: BASOPHILS % (AUTO) 0.5 % (0.2-1.0); EOSINOPHILS # (AUTO) 0.3 x10^3/uL (0.0-0.2); EOSINOPHILS % (AUTO) 4.5 % (0.9-2.9); HEMATOCRIT 34.1 % (36.0-47.0); HEMOGLOBIN 11.7 g/dL (12.0-16.0); LYMPHOCYTES # (AUTO) 1.1 X10^3/uL (1.3-2.9); LYMPHOCYTES % (AUTO) 14.9 % (21.0-51.0); MEAN CORPUSCULAR HGB CONC 34.3 g/dL (33.0-35.0); MEAN CORPUSCULAR VOLUME 93.4 fL (80.0-100.0); MEAN PLATELET VOLUME 7.8 fL (7.4-11.0); MONOCYTES # (AUTO) 0.7 x10^3/uL (0.3-0.8); MONOCYTES % (AUTO) 10.1 % (0.0-13.0); NEUTROPHILS # (AUTO) 5.1 x10^3/uL (2.2-4.8); PLATELET COUNT 239 X10^3/uL (150.0-450.0); RED BLOOD COUNT 3.66 X10^6/uL (3.5-5.4); RED CELL DISTRIBUTION WIDTH 13.1 % (11.6-16.5); WHITE BLOOD COUNT 7.3 X10^3/uL (3.6-10.0)
[2017-10-23] MEDS: NS 1000 ML 1,000 ML IV SCH ×2 (05:30→19:16)
[2017-10-23 05:36] LABS: BLOOD UREA NITROGEN 7 mg/dL (7-18); CALCIUM 8.6 mg/dL (8.5-10.1); CARBON DIOXIDE 22.4 mmol/L (21-32); CHLORIDE 109 mmol/L (98-107); CREATININE 1.06 mg/dL (0.55-1.02); SODIUM 141 mmol/L (136-145); eGFR BLACK RACES > 60 (>60); eGFR NON BLACK RACES 52 (>60)
[2017-10-23] MEDS: CIPRO IV 400 MG PREMIX* 400 MG/200 ML IV.SOLN. IV SCH ×2 (08:00→20:33)
[2017-10-23] MEDS: CYMBALTA PO SCH (08:00)
[2017-10-23] MEDS: MACRODANTIN 50 MG CAP PO SCH ×2 (08:00→23:45)
[2017-10-23] MEDS: ASPIRIN EC 81 MG PO SCH (08:00)
[2017-10-23] MEDS: OXYBUTYNIN CHLORIDE ER PO SCH (08:01)
[2017-10-23] MEDS: TYLENOL 500 MG TAB EXTRA STRENGTH PO SCH ×3 (08:01→16:59)
[2017-10-23] MEDS: PULMICORT NEB TX 0.5 MG NEB SCH ×2 (08:50→20:55)
[2017-10-23] MEDS: PROVENTIL NEB TX 0.083% 2.5MG/ 3ML NEB SCH ×4 (08:50→20:55)
[2017-10-23] MEDS ORDERED: TYLENOL 500 MG TAB EXTRA STRENGTH PO PRN (17:00)
[2017-10-23] MEDS: DESYREL PO SCH (20:34)
[2017-10-23] MEDS: RESTORIL CAP 15 MG PO PRN (20:34)
[2017-10-23] MEDS: CRESTOR TAB 10 MG PO SCH (20:34)
[2017-10-24 05:14] LABS: BASOPHILS # (AUTO) 0.1 X10^3/uL (0.0-0.1); BASOPHILS % (AUTO) 0.7 % (0.2-1.0); EOSINOPHILS # (AUTO) 0.5 x10^3/uL (0.0-0.2); EOSINOPHILS % (AUTO) 6.6 % (0.9-2.9); HEMATOCRIT 34.1 % (36.0-47.0); HEMOGLOBIN 11.7 g/dL (12.0-16.0); LYMPHOCYTES # (AUTO) 1.1 X10^3/uL (1.3-2.9); LYMPHOCYTES % (AUTO) 15.4 % (21.0-51.0); MEAN CORPUSCULAR HEMOGLOBIN 31.8 pg (27.0-34.0); MEAN CORPUSCULAR HGB CONC 34.5 g/dL (33.0-35.0); MEAN CORPUSCULAR VOLUME 92.3 fL (80.0-100.0); MEAN PLATELET VOLUME 8.3 fL (7.4-11.0); MONOCYTES # (AUTO) 0.8 x10^3/uL (0.3-0.8); MONOCYTES % (AUTO) 10.3 % (0.0-13.0); NEUTROPHILS # (AUTO) 4.9 x10^3/uL (2.2-4.8); PLATELET COUNT 234 X10^3/uL (150.0-450.0); RED BLOOD COUNT 3.69 X10^6/uL (3.5-5.4); RED CELL DISTRIBUTION WIDTH 13.3 % (11.6-16.5); WHITE BLOOD COUNT 7.3 X10^3/uL (3.6-10.0)
[2017-10-24 05:20] LABS: ALANINE AMINOTRANSFERASE 17 Units/L (12-78); ALKALINE PHOSPHATASE 83 Units/L (46-116); ASPARTATE AMINO TRANSFERASE 22 Units/L (15-37); BLOOD UREA NITROGEN 9 mg/dL (7-18); CALCIUM 8.6 mg/dL (8.5-10.1); CARBON DIOXIDE 20.4 mmol/L (21-32); CHLORIDE 110 mmol/L (98-107); COR CA(FOR HYPOALB) 9.4 mg/dL (8.5-10.1); CREATININE 0.98 mg/dL (0.55-1.02); SODIUM 141 mmol/L (136-145); TOTAL PROTEIN 6.3 g/dL (6.4-8.2); eGFR BLACK RACES > 60 (>60); eGFR NON BLACK RACES 57 (>60)
[2017-10-24] MEDS: NS 1000 ML 1,000 ML IV SCH (08:40)
[2017-10-24] MEDS: CIPRO IV 400 MG PREMIX* 400 MG/200 ML IV.SOLN. IV SCH (08:46)
[2017-10-24] MEDS: ASPIRIN EC 81 MG PO SCH (08:46)
[2017-10-24] MEDS: MACRODANTIN 50 MG CAP PO SCH (08:47)
[2017-10-24] MEDS: OXYBUTYNIN CHLORIDE ER PO SCH (08:47)
[2017-10-24] MEDS: CYMBALTA PO SCH (08:47)
[2017-10-24] MEDS: PULMICORT NEB TX 0.5 MG NEB SCH (08:49)
[2017-10-24] MEDS: PROVENTIL NEB TX 0.083% 2.5MG/ 3ML NEB SCH ×2 (08:49→13:16)
[2017-10-24] MEDS ORDERED: MACROBID CAP 100 MG EXT REL PO SCH (09:00)
[2017-10-24 15:32] VITALS: BP 130/61
== END 2017-10-24 16:00 | disposition home or self-care (01) | DRG 392 ==
LOC: MED/SURG 12:52 → UNDOADMOB 12:52 → MED/SURG 14:35 → OBSVTOIN 10-22 13:00
PROVIDERS: ADMIT Internal Medicine; ATTEND Internal Medicine
DX: R19.7 Diarrhea, unspecified (principal); R06.02 Shortness of breath; E86.0 Dehydration; J44.9 Chronic obstructive pulmonary disease, unspecified; K58.0 Irritable bowel syndrome with diarrhea; K92.1 Melena; R09.02 Hypoxemia; R53.1 Weakness
CPT/HCPCS: 36415; 71010; 76705; 80048; 80053; 81001; 82270; 82550; 82553; 84484; 85025; 87045; 87328; 87329; 87336; 87427; 87493; 87899; 93005; 94640; 94760; 99231; A4216; A4222; G0378; J0744; J7613; J7626

== ENCOUNTER → 2018-02-14 | Outpatient (CLI) | payer OTHER ==
--- NOTE | 2018-02-14 13:05 | RAD ---
HISTORY: Abdominal pain and distention and constipation Study: Acute abdominal series Comparison: Chest dated October 20, 2017 Findings: The trachea is midline. The cardiac silhouette is mildly enlarged.. The lungs are clear without foc al infiltrate or effusion. There are dorsal column stimulator wires over the lower thoracic spine. T here is extensive posterior fusion of the lower spine extending from the lower thoracic spine into th e sacrum.. Flat plate and upright evaluation of the abdomen demonstrates a prominent amount of fecal material in the colon.. No pathological soft tissue mass or calcification can be observed. There is partial vi sualization of a left hip diana and screw.. IMPRESSION: 1. No acute cardiopulmonary disease. 2. Prominent fecal material in the colon which is consistent with history of constipation. Reported By:
== END ==
LOC: RAD 12:35
PROVIDERS: ATTEND Internal Medicine Gastroenterology
DX: R14.0 Abdominal distension (gaseous) (principal); K59.09 Other constipation
CPT/HCPCS: 74022

== ENCOUNTER → 2018-03-09 | Outpatient (CLI) | payer OTHER ==
[2018-03-09 08:56] LABS: BASOPHILS # (AUTO) 0.1 X10^3/uL (0.0-0.1); EOSINOPHILS # (AUTO) 0.3 x10^3/uL (0.0-0.2); EOSINOPHILS % (AUTO) 3.8 % (0.9-2.9); HEMATOCRIT 39.6 % (36.0-47.0); HEMOGLOBIN 13.6 g/dL (12.0-16.0); LYMPHOCYTES # (AUTO) 1.3 X10^3/uL (1.3-2.9); LYMPHOCYTES % (AUTO) 14.8 % (21.0-51.0); MEAN CORPUSCULAR HGB CONC 34.4 g/dL (33.0-35.0); MEAN PLATELET VOLUME 7.8 fL (7.4-11.0); MONOCYTES # (AUTO) 0.6 x10^3/uL (0.3-0.8); MONOCYTES % (AUTO) 6.4 % (0.0-13.0); NEUTROPHILS # (AUTO) 6.5 x10^3/uL (2.2-4.8); PLATELET COUNT 250 X10^3/uL (150.0-450.0); RED BLOOD COUNT 4.26 X10^6/uL (3.5-5.4); RED CELL DISTRIBUTION WIDTH 13.6 % (11.6-16.5); WHITE BLOOD COUNT 8.8 X10^3/uL (3.6-10.0)
[2018-03-09 09:31] LABS: ALANINE AMINOTRANSFERASE 20 Units/L (12-78); ALBUMIN 3.6 g/dL (3.4-5.0); ALKALINE PHOSPHATASE 87 Units/L (46-116); ASPARTATE AMINO TRANSFERASE 19 Units/L (15-37); BLOOD UREA NITROGEN 17 mg/dL (7-18); CALCIUM 8.9 mg/dL (8.5-10.1); CARBON DIOXIDE 31.6 mmol/L (21-32); CHLORIDE 103 mmol/L (98-107); CREATININE 0.98 mg/dL (0.55-1.02); SODIUM 139 mmol/L (136-145); TOTAL PROTEIN 7.2 g/dL (6.4-8.2); eGFR BLACK RACES > 60 (>60); eGFR NON BLACK RACES 57 (>60)
== END ==
LOC: LAB 08:30
PROVIDERS: ATTEND Internal Medicine Gastroenterology
DX: R10.84 Generalized abdominal pain (principal)
CPT/HCPCS: 36415; 80053; 85025; 86140

== ENCOUNTER → 2018-03-14 | Outpatient (CLI) | payer OTHER ==
--- NOTE | 2018-03-14 10:44 | CT ---
History: Abdominal pain Study: CT abdomen and pelvis with IV and oral contrast Findings: Wood Pattern [employer] film the abdomen and pelvis shows a dorsal column stimulator battery pack overlying t he left iliac crest. Extensive spinal surgery is seen with pedicle screws and rods extending througho ut the visible lumbar spine. There is a trochanteric nail seen in the left hip as well. Thin-section axial images from the diaphragm through the symphysis with IV and oral contrast was give n. There is some artifacts seen from the extensive metal hardware. The heart is enlarged. The lung bases are without acute infiltrate, nodule or pleural effusion. No pe ricardial effusion is identified. The liver is without focal defect or intrahepatic ductal dilatation. The gallbladder shows no wall th ickening or calcific stone. The pancreas shows no mass inflammation or ductal dilatation. The spleen is unremarkable. No adrenal mass is evident. The kidneys show no hydronephrosis or mass. The urinary bladder is without wall thickening or mass. No focal distension of small or large bowel is evident. No adenopathy or ascites is seen. Postoperati ve changes as previously noted are seen. Prominent osteopenia is identified. Postoperative changes of kyphoplasty are seen extending from T10 through L5. Heavy aortic calcification is seen without aneur ysmal dilatation. No pelvic mass is identified. The uterus is absent. Impression: 1. Cardiomegaly without acute findings of the visible chest. 2. Extensive postoperative changes of the spine. 3. Postoperative changes of hysterectomy 4. No acute findings are seen on the CT of the abdomen/pelvis Reported By:
== END ==
LOC: RAD 09:02
PROVIDERS: ATTEND Internal Medicine Gastroenterology
DX: R10.84 Generalized abdominal pain (principal)
CPT/HCPCS: 74177; A4222

== ENCOUNTER 2019-09-19 09:58 | Inpatient (IN) ==
--- NOTE | 2019-09-19 10:47 | DR.GENAD ---
HPI Time Seen Time Seen by Provider: 09/19/19 10:33 PCP Primary Care Physician: DR. VALENZUELA Complaint/Symptoms Chief Complaint:: [facility] WERE DISPATCHED TO A CALL FOR DEHYDRATION AND FAILURE TO THRIVE. PER EMS, PATIENT HASN'T BEEN EATING FOR A COUPLE OF DAYS. PER DAUGHTER IN LAW AND FLOOR COVERING LAYER, THAT PATIENT STARTED YESTERDAY WITH BEING MORE DROWSY THAN NORMAL AND NOT EATING AND BARELY DRINKING. Source History Provided: Patient Mode of Arrival Mode of Arrival: EMS Timing Onset of Chief Complaint: 09/18/19 PMH PMH Past Medical History: Yes Past Medical History: Anxiety, COPD, Depression, Dyslipidemia, GERD and Hypothyroidism Past Surgical History: Yes Surgical History: Hysterectomy and Ortho Surgery Past Surgical History Comment: BACK SURGERY X3 Family History History of Family Medical Conditions: Yes Family Medical History: Hypertension Social History Does any household member use tobacco: No Alcohol Use: None Do you use any recreational Drugs:: No Lives With: Alone Lives Where: Home infectious screening Have you traveled outside the country in the last 6 months?: No Isolation: Standard PE Vital Signs Vitals: Temperature 99.5 F Pulse Rate 80 Respiratory Rate 18 Blood Pressure [Left Arm] 180/78 Blood Pressure [Right Arm] 133/62 Blood Pressure 182/79 O2 Sat by Pulse Oximetry 97 General Limitations: No Limitations General Appearance: Alert and In No Apparent Distress Head Head Exam: Normal Inspection Eyes Eye exam: Normal Appearance ENT ENT Exam: Normal Exam External Ear Exam: Normal External Inspection TM/Canal Exam: Bilateral: Normal Nose Exam: Normal Nose Exam Mouth Exam: Normal Inspection Throat Exam: Normal Inspection Neck Neck Exam: Normal Inspection Chest Chest Inspection: Normal Inspection Respiratory Respiratory Exam: Normal Lung Sounds Bilat Respiratory Exam: Bilateral: Clear to Auscultation Cardiovascular Cardiovascular Exam: Regular Rate and Normal Rhythm Abdominal Exam Abdominal Exam: Normal Inspection, Normal Bowel Sounds and Soft Extremities Extremities Exam: Normal Inspection Back Back Exam: Normal Inspection Neurologic Neurological Exam: Alert and Oriented X3 Psychiatric Psychiatric Exam: Normal Affect and Normal Mood Skin Skin Exam: Warm, Dry, Intact and Normal Color ROR Labs Reviewed Result Diagrams: 09/19/19 10:52 09/19/19 10:52 Laboratory: WBC 6.7 X10^3/uL (3.6-10.0) 09/19/19 10:52 RBC 4.41 X10^6/uL (3.5-5.4) 09/19/19 10:52 Hgb 13.4 g/dL (12.0-16.0) 09/19/19 10:52 Hct 40.1 % (36.0-47.0) 09/19/19 10:52 MCV 90.9 fL (80.0-100.0) 09/19/19 10:52 MCH 30.5 pg (27.0-34.0) 09/19/19 10:52 MCHC 33.5 g/dL (33.0-35.0) 09/19/19 10:52 RDW 14.4 % (11.6-16.5) 09/19/19 10:52 Plt Count 225 X10^3/uL (150.0-450.0) 09/19/19 10:52 MPV 7.6 fL (7.4-11.0) 09/19/19 10:52 Neut % (Auto) 79.3 % (42.0-75.0) H 09/19/19 10:52 Lymph % (Auto) 11.0 % (21.0-51.0) L 09/19/19 10:52 [place] % (Auto) 7.2 % (0.0-13.0) 09/19/19 10:52 Eos % (Auto) 1.9 % (0.9-2.9) 09/19/19 10:52 Baso % (Auto) 0.6 % (0.2-1.0) 09/19/19 10:52 Neut # (Auto) 5.3 x10^3/uL (2.2-4.8) H 09/19/19 10:52 Lymph # (Auto) 0.7 X10^3/uL (1.3-2.9) L 09/19/19 10:52 [place] # (Auto) 0.5 x10^3/uL (0.3-0.8) 09/19/19 10:52 Eos # (Auto) 0.1 x10^3/uL (0.0-0.2) 09/19/19 10:52 Baso # (Auto) 0.0 X10^3/uL (0.0-0.1) 09/19/19 10:52 Absolute Nucleated RBC 0.1 /100WBC 09/19/19 10:52 Sodium 141 mmol/L (136-145) 09/19/19 10:52 Corrected Sodium TNP 09/19/19 10:52 Potassium 3.9 mmol/L (3.5-5.1) 09/19/19 10:52 Chloride 102 mmol/L (98-107) 09/19/19 10:52 Carbon Dioxide 32.0 mmol/L (21-32) 09/19/19 10:52 BUN 13 mg/dL (7-18) 09/19/19 10:52 Creatinine 0.90 mg/dL (0.55-1.02) 09/19/19 10:52 Est GFR (MDRD) Af Amer > 60 (>60) 09/19/19 10:52 Est GFR (MDRD) Non-Af > 60 (>60) 09/19/19 10:52 Glucose 102 mg/dL (65-99) H 09/19/19 10:52 Lactic Acid 0.9 mmol/L (0.4-2.0) 09/19/19 10:52 Calcium 9.4 mg/dL (8.5-10.1) 09/19/19 10:52 Corrected Calcium TNP 09/19/19 10:52 Total Bilirubin 0.70 mg/dL (0.2-1.0) 09/19/19 10:52 AST 18 Units/L (15-37) 09/19/19 10:52 ALT 13 Units/L (12-78) 09/19/19 10:52 Alkaline Phosphatase 111 Units/L (46-116) 09/19/19 10:52 Creatine Kinase 43 Units/L (26-192) 09/19/19 10:52 CK-MB (CK-2) 1.7 ng/mL (0-4.0) 09/19/19 10:52 CK/CKMB % Calc 4.0 % (<4) 09/19/19 10:52 Troponin I < 0.02 ng/mL (0-1.5) 09/19/19 10:52 Total Protein 7.2 g/dL (6.4-8.2) 09/19/19 10:52 Albumin 3.7 g/dL (3.4-5.0) 09/19/19 10:52 Globulin 3.5 g/dL (2.5-4.5) 09/19/19 10:52 Albumin/Globulin Ratio 1.1 Ratio (1.1-2.1) 09/19/19 10:52 Amylase 106 Units/L (25-115) 09/19/19 10:52 Lipase 806 Units/L (73-393) H 09/19/19 10:52 Opioid Opioid Risk Tool Total: 0 Total Score Risk Category: Low Risk Copyright: Danny GONZALEZ predicting aberrant behaviors Instructions Forms: Excuse From Work Patient Portal
[2019-09-19 11:26] LABS: BASOPHILS % (AUTO) 0.6 % (0.2-1.0); EOSINOPHILS # (AUTO) 0.1 x10^3/uL (0.0-0.2); EOSINOPHILS % (AUTO) 1.9 % (0.9-2.9); HEMATOCRIT 40.1 % (36.0-47.0); HEMOGLOBIN 13.4 g/dL (12.0-16.0); LYMPHOCYTES # (AUTO) 0.7 X10^3/uL (1.3-2.9); MEAN CORPUSCULAR HEMOGLOBIN 30.5 pg (27.0-34.0); MEAN CORPUSCULAR HGB CONC 33.5 g/dL (33.0-35.0); MEAN CORPUSCULAR VOLUME 90.9 fL (80.0-100.0); MEAN PLATELET VOLUME 7.6 fL (7.4-11.0); MONOCYTES # (AUTO) 0.5 x10^3/uL (0.3-0.8); MONOCYTES % (AUTO) 7.2 % (0.0-13.0); NEUTROPHILS # (AUTO) 5.3 x10^3/uL (2.2-4.8); NEUTROPHILS % (AUTO) 79.3 % (42.0-75.0); PLATELET COUNT 225 X10^3/uL (150.0-450.0); RED BLOOD COUNT 4.41 X10^6/uL (3.5-5.4); RED CELL DISTRIBUTION WIDTH 14.4 % (11.6-16.5); WHITE BLOOD COUNT 6.7 X10^3/uL (3.6-10.0)
[2019-09-19 11:40] LABS: LACTIC ACID 0.9 mmol/L (0.4-2.0)
--- NOTE | 2019-09-19 11:45 | RAD ---
HISTORY: Weakness, failure to thrive, shortness of breath Study: Single-view chest Comparison: 07/10/2019. Findings: Multiple postsurgical changes are seen involving the thoracic and lumbar spine regions which have been previously described appear stable. Trachea is midline. Heart size is upper normal with aortic uncoiling. Stable linear foci increased markings are noted involving both lungs. These are not significantly changed compared to prior studies. No infiltrate, CHF, pleural fluid or pneumothorax is seen. There are multiple healed right-sided rib fractures. IMPRESSION: Multiple postsurgical changes. Stable chest without acute cardiopulmonary disease. Reported By:
[2019-09-19 11:47] LABS: BLOOD UREA NITROGEN 13 mg/dL (7-18); CALCIUM 9.4 mg/dL (8.5-10.1); CHLORIDE 102 mmol/L (98-107); SODIUM 141 mmol/L (136-145); TROPONIN I < 0.02 ng/mL (0-1.5); eGFR NON BLACK RACES > 60 (>60)
[2019-09-19 11:50] LABS: ALANINE AMINOTRANSFERASE 13 Units/L (12-78); ALBUMIN 3.7 g/dL (3.4-5.0); ALKALINE PHOSPHATASE 111 Units/L (46-116); AMYLASE 106 Units/L (25-115); ASPARTATE AMINO TRANSFERASE 18 Units/L (15-37); CREATINE KINASE 43 Units/L (26-192); CREATINE KINASE MB 1.7 ng/mL (0-4.0); LIPASE 806 Units/L (73-393); TOTAL PROTEIN 7.2 g/dL (6.4-8.2)
[2019-09-19] MEDS ORDERED: CATAPRES TAB 0.1 MG PO ONE (12:28)
[2019-09-19] MEDS ORDERED: CATAPRES TAB 0.1 MG ONE (12:55)
--- NOTE | 2019-09-19 14:04 | CT ---
HISTORY: Weakness, abdominal pain, failure to thrive Study: CT abdomen pelvis without contrast Comparison: 03/14/2018 Technique: Axial noncontrast images with coronal and sagittal reformats. Dose reduction procedures were used with mA/kv adjusted for body size. THIS EXAMINATION IS LIMITED DUE TO THE LACK OF INTRAVENOUS AND ORAL CONTRAST. The examination was performed in this manner at the sole discretion of the ordering caregiver and without input from Radiology. Findings: The lung bases are clear. The liver, spleen, adrenal glands, and pancreas are within normal limits only to the limitations of an unenhanced examination. No opaque stones are visible within the gallbladder. The kidneys are unobstructed and without stones. No ureteral calculi are identified. Calcific atherosclerotic changes present in a nondilated abdominal aorta. No intraperitoneal or retroperitoneal lymphadenopathy of significance is identified. There are no findings suggestive diverticulitis or colitis. The appendix is not identified with absolute certainty. There are no secondary signs of appendicitis. Examination of the pelvis demonstrated no evidence for pelvic masses, pelvic fluid, or pelvic lymphadenopathy. No bladder abnormality is identified. No lytic or blastic skeletal lesions of significance are identified. Extensive postsurgical changes are present in the lumbar spine with multiple rods and pedicular screws present extending up into the thoracic spine. IMPRESSION: No definite acute intra-abdominal or intrapelvic abnormality to the limitations of an examination performed without intravenous and without oral contrast. Reported By:
[2019-09-19] MEDS ORDERED: PROVENTIL NEB TX 0.083% 2.5MG/ 3ML NEB PRN (14:49)
[2019-09-19 14:59] VITALS: BMI 18.6
[2019-09-19] MEDS: NS 1000 ML 1,000 ML IV SCH (15:04)
[2019-09-19] MEDS: MORPHINE SULFATE INJ 2 MG INJ IVP PRN (15:04)
[2019-09-19 15:54] LABS: BILIRUBIN,URINE NEGATIVE (NEGATIVE); BLOOD/HEMOGLOBIN,URINE 1+ (NEGATIVE); GLUCOSE, URINE NEGATIVE (NEGATIVE); KETONES,URINE NEGATIVE (NEGATIVE); LEUKOCYTE ESTERASE ,URINE 3+ (NEGATIVE); NITRITES,URINE NEGATIVE (NEGATIVE); PH,URINE 6.5 (5.0 - 8.0); PROTEIN,URINE 2+ (NEGATIVE); UROBILINOGEN,URINE NORMAL (NORMAL)
[2019-09-19 16:08] LABS: APPEARANCE,URINE CLOUDY (CLEAR); COLOR,URINE YELLOW (YELLOW)
[2019-09-19 16:09] LABS: AMORPHOUS SEDIMENT,UR TRACE /HPF (NEGATIVE); BACTERIA,URINE 3+ /HPF (NEGATIVE); RBC,URINE 0-2 /HPF (0-3); SQUAMOUS EPITHELIAL CELL,UR RARE /HPF (NEGATIVE)
[2019-09-19 18:40] LABS: CKMB % 2.8 % (<4); CREATINE KINASE 39 Units/L (26-192); CREATINE KINASE MB 1.1 ng/mL (0-4.0); TROPONIN I < 0.02 ng/mL (0-1.5)
[2019-09-19] MEDS: ROCEPHIN VIAL 1 GRAM 1 G in NS 100 ML IV + SPIKE MINIBAG* 100 ML IV SCH (21:43)
[2019-09-20 01:02] LABS: CKMB % 3.3 % (<4); CREATINE KINASE 39 Units/L (26-192); CREATINE KINASE MB 1.3 ng/mL (0-4.0); TROPONIN I < 0.02 ng/mL (0-1.5)
[2019-09-20] MEDS: NS 1000 ML 1,000 ML IV SCH ×3 (03:14→17:39)
[2019-09-20] MEDS ORDERED: CATAPRES TAB 0.1 MG PO ONE (04:13)
[2019-09-20] MEDS ORDERED: CATAPRES TAB 0.1 MG ONE (04:14)
[2019-09-20 05:46] LABS: BASOPHILS # (AUTO) 0.1 X10^3/uL (0.0-0.1); EOSINOPHILS # (AUTO) 0.4 x10^3/uL (0.0-0.2); EOSINOPHILS % (AUTO) 6.1 % (0.9-2.9); HEMATOCRIT 33.4 % (36.0-47.0); LYMPHOCYTES # (AUTO) 0.9 X10^3/uL (1.3-2.9); LYMPHOCYTES % (AUTO) 14.9 % (21.0-51.0); MEAN CORPUSCULAR HGB CONC 34.1 g/dL (33.0-35.0); MEAN CORPUSCULAR VOLUME 91.1 fL (80.0-100.0); MONOCYTES # (AUTO) 0.6 x10^3/uL (0.3-0.8); MONOCYTES % (AUTO) 10.1 % (0.0-13.0); NEUTROPHILS % (AUTO) 67.9 % (42.0-75.0); PLATELET COUNT 191 X10^3/uL (150.0-450.0); RED BLOOD COUNT 3.66 X10^6/uL (3.5-5.4); WHITE BLOOD COUNT 5.9 X10^3/uL (3.6-10.0)
[2019-09-20 05:57] LABS: ALANINE AMINOTRANSFERASE < 6 Units/L (12-78); ALKALINE PHOSPHATASE 90 Units/L (46-116); ASPARTATE AMINO TRANSFERASE 15 Units/L (15-37); BLOOD UREA NITROGEN 12 mg/dL (7-18); CALCIUM 8.6 mg/dL (8.5-10.1); CARBON DIOXIDE 30.2 mmol/L (21-32); CHLORIDE 105 mmol/L (98-107); COR CA(FOR HYPOALB) 9.4 mg/dL (8.5-10.1); CREATININE 0.79 mg/dL (0.55-1.02); SODIUM 141 mmol/L (136-145); eGFR NON BLACK RACES > 60 (>60)
[2019-09-20 05:58] LABS: HEMOGLOBIN 11.4 g/dL (12.0-16.0)
[2019-09-20] MEDS: ROCEPHIN VIAL 1 GRAM 1 G in NS 100 ML IV + SPIKE MINIBAG* 100 ML IV SCH (09:10)
--- NOTE | 2019-09-20 10:30 | US ---
HISTORY: Weakness, failure to thrive, shortness of breath, abdominal pain for 1 year Study: Ultrasound of the gallbladder Comparison: CT scan of the abdomen and pelvis done 09/19/2019 Technique: Grayscale, duplex and color Doppler ultrasound of the gallbladder region is provided. Findings: The gallbladder is well seen. No evidence of gallstone, gallbladder wall thickening or pericholecystic fluid is seen. Common bile duct measures 4.1 mm in diameter. Adjacent liver is normal. Doppler studies of the liver are also normal. Pancreas is unremarkable. Right kidney measures 5.3 x 5.3 x 9.26 cm. Cortical thickness is 1.09 cm. No renal mass or stone is seen. There is a hypoechoic structure near the renal hilum region on the right. This has the appearance of a small peripelvic cyst. This measures about 2.8 cm in diameter. No solid mass is seen IMPRESSION: Normal gallbladder. 2.8 cm marleny- pelvic cyst of the right kidney. Reported By:
[2019-09-20] MEDS: LOVENOX INJ 40 MG SYR SC SCH (11:23)
[2019-09-20] MEDS ORDERED: APRESOLINE INJ 20 MG VIAL ONE (18:15)
[2019-09-20] MEDS: APRESOLINE INJ 20 MG VIAL IVP PRN (18:18)
--- NOTE | 2019-09-20 19:34 | DR.H&P ---
H&P - History & Physical for Day of: H&P Date: 09/19/19 - Chief Complaint Chief Complaint: WEAKNESS, DEHYDRATION - History of Present Illness History of Present Illness: PT IS 89EF ER ADMISSION AFTER [facility] WERE DISPATCHED TO A CALL FOR DEHYDRATION AND FAILURE TO THRIVE. PER EMS, PATIENT HASN'T BEEN EATING FOR A COUPLE OF DAYS. PER DAUGHTER IN LAW AND SOFTBALL WINDER, THAT PATIENT STARTED YESTERDAY WITH BEING MORE DROWSY THAN NORMAL AND NOT EATING AND BARELY DRINKING. FAMILY REPORTS PT HAS HAD 4 FALLS IN LESS THAN ONE MONTH, CO INCREASED BACK PAIN AND FOOD INTOLERANCE. PT ADMITTED FOR TREATMENT OF ACUTE ILLNESS - Past Medical History Past Medical History: Dyslipidemia, Depression, Anxiety, Hypothyroidism, COPD, GERD Additional Medical History: Cataracts, Back Pain, Left Hip/Femur Fracture, Constipation - Past Surgical History Surgical History: Appendectomy, Ortho Surgery Additional Surgical History: Back Stimulator - Family History Family Medical History: Cancer, Hypertension - Social History Does patient currently use any type of tobacco product: No Have you used tobacco products in the last 12 months: No Type of Tobacco Use: None Does any household member use tobacco: No Alcohol Use: None Drug Use: None - Medications Home Medications: No Known Drug Allergies Allergy (Verified 10/20/17 15:23) CONTINUE taking the following medications baclofen 10 mg PO TID PRN 09/19/19 [History] famotidine 20 mg PO BID 09/19/19 [History] levothyroxine 50 mcg PO DAILY 09/19/19 [History] oxybutynin chloride 15 mg PO BID 09/19/19 [History] oxycodone-acetaminophen 1 tab PO Q6H PRN 09/19/19 [History] - Review of Systems Constitutional: Weakness, Malaise Eyes: No Symptoms Reported ENT: No Symptoms Reported Respiratory: Cough Gastrointestinal: Nausea, Abdominal Pain Genitourinary: No Symptoms Reported Musculoskeletal: Back Pain Skin: No Symptoms Reported Neurological: Weakness, Confusion - Physical Exam Vital Signs: Temperature 97.8 F Pulse Rate [Right Brachial] 69 Pulse Rate [Left] 72 Pulse Rate 76 Respiratory Rate 18 Blood Pressure [Left Arm] 146/72 Blood Pressure [Right Arm] 197/84 Blood Pressure 146/72 O2 Sat by Pulse Oximetry 96 Oriented: Person Eyes: Normal Ear: Normal Nose: Normal Throat: Dry Respiratory: LLL Diminished Cardiovascular: Normal. negative: Edema : Normal Auscultation: Bowel Sounds: Normal Palpation: Normal Tenderness: RUQ, Epigastric Skin: Decreased Turgur Musculoskeletal: Back:Thoracic, Back:Lumbar, Motor Deficit (GENERALIZED WEAKNESS) Psychiatric: Anxiety Affect: Anxious Speech Pattern: Clear, Appropriate - Assessment/Plan (1) UTI (urinary tract infection) Status: Acute Plan: ADMIT, GENTLE IV HYDRATION. BLOOD AND URINE CULTURE ON ADMISSION, IV ATBX THERAPY. NPO AFTER MIDNIGHT FOR GB US. STRICT I&OS, CXR ON ADMISSION. PAIN CONTROL, VERIFY HOME MEDICATION, PPI THERAPY (2) Pancreatitis Status: Acute (3) GERD (gastroesophageal reflux disease) Status: Acute (4) Weakness Status: Acute (5) Dehydration Status: Acute - Allergies Allergies/Adverse Reactions: Allergies Allergy/AdvReac Type Severity Reaction Status Date / Time No Known Drug Allergies Allergy Verified 10/20/17 15:23
--- NOTE | 2019-09-20 19:41 | PCM.PROG ---
Progress Note - Progress Note for Day of Date of Exam: 09/20/19 - Subjective Subjective: 89 WF ER ADMISSION WITH DEHYDRATION,UTI, WEAKNESS AND PANCREATITIS. PT HAD EPIGASTRIC AND DIFFUSE UPPER ABDOMINAL TENDERNESS, CT ON ADMISSION W/O ACUTE FINDINGS. PT IS NPO THIS AM FOR GB US. PT BP ELEVATED, GIVEN CATAPRES IN ER. IV HYDRALAZINE ORDERED AND WILL START LISINOPRIL PO TODAY AFTER US. PT FAMILY REPORTS SHE HAS HAD SIGNIFICANT CHANGES IN APPETITE AND INCREASED WEAKNESS WITH 4 FALLS THIS MONTH. AFTER TREATMENT OF ACUTE ILLNES FAMILY IS REQUESTING [facility] PLACEMENT FOR THERAPY. PT DENIES CP THIS AM, CO BACK PAIN AND NAUSEA. SERIAL CE ON ADMISSION WNL, LABS AND TESTS REVIEWED WITH PT AND FAMILY - Past Medical Family Social History Past Med/Fam/Surg Hx: No changes since H&P Allergies: Allergies No Known Drug Allergies Allergy (Verified 10/20/17 15:23) - Review of Systems ROS: No change since H&P - Vital Signs and I&O's Vital Signs: Temperature 97.8 F Pulse Rate [Right Brachial] 69 Pulse Rate [Left] 72 Pulse Rate 76 Respiratory Rate 18 Blood Pressure [Left Arm] 146/72 Blood Pressure [Right Arm] 197/84 Blood Pressure 146/72 O2 Sat by Pulse Oximetry 96 Intake and Output: Intake & Output 09/18/19 09/19/19 09/20/19 09/21/19 11:59 11:59 11:59 11:59 Intake Total 925 / 925 600 / 600 Balance 925 / 925 600 / 600 - Physical Exam Oriented: Person Eyes: Normal Ear: Normal Nose: Normal Throat: Dry Cardiovascular: Normal. negative: Edema : Normal Auscultation: Bowel Sounds: Normal Tenderness: RUQ, Epigastric Skin: Decreased Turgur Musculoskeletal: Back:Thoracic, Back:Lumbar, Motor Deficit (GENERALIZED WEAKNESS) Psychiatric: Anxiety Affect: Anxious Speech Pattern: Clear, Appropriate - Laboratory and Diagnostics Result Diagrams: 09/20/19 05:30 09/20/19 05:30 Labs: 09/19/19 15:45 Urine,Clean Catch Urine Culture - Preliminary Laboratory WBC 5.9 X10^3/uL (3.6-10.0) 09/20/19 05:30 RBC 3.66 X10^6/uL (3.5-5.4) 09/20/19 05:30 Hgb 11.4 g/dL (12.0-16.0) L D 09/20/19 05:30 Hct 33.4 % (36.0-47.0) L 09/20/19 05:30 MCV 91.1 fL (80.0-100.0) 09/20/19 05:30 MCH 31.0 pg (27.0-34.0) 09/20/19 05:30 MCHC 34.1 g/dL (33.0-35.0) 09/20/19 05:30 RDW 14.0 % (11.6-16.5) 09/20/19 05:30 Plt Count 191 X10^3/uL (150.0-450.0) 09/20/19 05:30 MPV 8.0 fL (7.4-11.0) 09/20/19 05:30 Neut % (Auto) 67.9 % (42.0-75.0) 09/20/19 05:30 Lymph % (Auto) 14.9 % (21.0-51.0) L 09/20/19 05:30 [place] % (Auto) 10.1 % (0.0-13.0) 09/20/19 05:30 Eos % (Auto) 6.1 % (0.9-2.9) H 09/20/19 05:30 Baso % (Auto) 1.0 % (0.2-1.0) 09/20/19 05:30 Neut # (Auto) 4.0 x10^3/uL (2.2-4.8) 09/20/19 05:30 Lymph # (Auto) 0.9 X10^3/uL (1.3-2.9) L 09/20/19 05:30 [place] # (Auto) 0.6 x10^3/uL (0.3-0.8) 09/20/19 05:30 Eos # (Auto) 0.4 x10^3/uL (0.0-0.2) H 09/20/19 05:30 Baso # (Auto) 0.1 X10^3/uL (0.0-0.1) 09/20/19 05:30 Absolute Nucleated RBC 0.0 /100WBC 09/20/19 05:30 Sodium 141 mmol/L (136-145) 09/20/19 05:30 Corrected Sodium TNP 09/20/19 05:30 Potassium 3.8 mmol/L (3.5-5.1) 09/20/19 05:30 Chloride 105 mmol/L (98-107) 09/20/19 05:30 Carbon Dioxide 30.2 mmol/L (21-32) 09/20/19 05:30 BUN 12 mg/dL (7-18) 09/20/19 05:30 Creatinine 0.79 mg/dL (0.55-1.02) 09/20/19 05:30 Est GFR (MDRD) Af Amer > 60 (>60) 09/20/19 05:30 Est GFR (MDRD) Non-Af > 60 (>60) 09/20/19 05:30 Glucose 98 mg/dL (65-99) 09/20/19 05:30 Lactic Acid 0.9 mmol/L (0.4-2.0) 09/19/19 10:52 Calcium 8.6 mg/dL (8.5-10.1) 09/20/19 05:30 Corrected Calcium 9.4 mg/dL (8.5-10.1) 09/20/19 05:30 Magnesium 2.0 mg/dL (1.7-2.9) 09/20/19 05:30 Total Bilirubin 0.60 mg/dL (0.2-1.0) 09/20/19 05:30 AST 15 Units/L (15-37) 09/20/19 05:30 ALT < 6 Units/L (12-78) L 09/20/19 05:30 Alkaline Phosphatase 90 Units/L (46-116) 09/20/19 05:30 Creatine Kinase 39 Units/L (26-192) 09/20/19 00:16 CK-MB (CK-2) 1.3 ng/mL (0-4.0) 09/20/19 00:16 CK/CKMB % Calc 3.3 % (<4) 09/20/19 00:16 Troponin I < 0.02 ng/mL (0-1.5) 09/20/19 00:16 Total Protein 6.0 g/dL (6.4-8.2) L 09/20/19 05:30 Albumin 3.0 g/dL (3.4-5.0) L 09/20/19 05:30 Globulin 3.0 g/dL (2.5-4.5) 09/20/19 05:30 Albumin/Globulin Ratio 1.0 Ratio (1.1-2.1) L 09/20/19 05:30 Amylase 106 Units/L (25-115) 09/19/19 10:52 Lipase 806 Units/L (73-393) H 09/19/19 10:52 Specimen Type Clean catch urine 09/19/19 15:45 Urine Color Yellow (YELLOW) 09/19/19 15:45 Urine Appearance Cloudy (CLEAR) 09/19/19 15:45 Urine pH 6.5 (5.0 - 8.0) 09/19/19 15:45 Ur Specific [place] 1.015 (1.000-1.030) 09/19/19 15:45 Urine Protein 2+ (NEGATIVE) 09/19/19 15:45 Urine Glucose (UA) Negative (NEGATIVE) 09/19/19 15:45 Urine Ketones Negative (NEGATIVE) 09/19/19 15:45 Urine Occult Blood 1+ (NEGATIVE) 09/19/19 15:45 Urine Nitrite Negative (NEGATIVE) 09/19/19 15:45 Urine Bilirubin Negative (NEGATIVE) 09/19/19 15:45 Urine Urobilinogen Normal (NORMAL) 09/19/19 15:45 Ur Leukocyte Esterase 3+ (NEGATIVE) 09/19/19 15:45 Urine RBC 0-2 /HPF (0-3) 09/19/19 15:45 Urine WBC Tntc /HPF (0-5) A 09/19/19 15:45 Ur Squamous Epith Cells Rare /HPF (NEGATIVE) 09/19/19 15:45 Amorphous Sediment Trace /HPF (NEGATIVE) 09/19/19 15:45 Urine Bacteria 3+ /HPF (NEGATIVE) 09/19/19 15:45 Ur Culture Indicated? Yes/culture set up 09/19/19 15:45 - Plan (1) UTI (urinary tract infection) Status: Acute Plan: GENTLE IV HYDRATION. BLOOD AND URINE CULTURE ON ADMISSION, IV ATBX THERAPY. NPO FOR GB US. STRICT I&OS, CXR ON ADMISSION. PAIN CONTROL, VERIFY HOME MEDICATION, PPI THERAPY. BP CONTROL, CARDIAC MONITORING, PRN SUPPLEMENTAL O2 (2) Pancreatitis Status: Acute (3) Hypertension Status: Acute (4) GERD (gastroesophageal reflux disease) Status: Acute (5) Weakness Status: Acute (6) Dehydration Status: Acute
[2019-09-20] MEDS: AMBIEN PO SCH (20:37)
[2019-09-20] MEDS: ZESTRIL TAB 5 MG PO SCH (20:37)
[2019-09-20] MEDS: PROTONIX INJ 40 MG VIAL IVP SCH (20:37)
[2019-09-20] MEDS: CRESTOR TAB 10 MG PO SCH (20:38)
[2019-09-20] MEDS: COLACE CAP 100 MG PO SCH (20:38)
[2019-09-20] MEDS: MORPHINE SULFATE INJ 2 MG INJ IVP PRN (20:43)
[2019-09-21] MEDS: APRESOLINE INJ 20 MG VIAL IVP PRN ×2 (03:29→17:33)
[2019-09-21] MEDS ORDERED: TYLENOL 325 MG TAB PO ONE (04:06)
[2019-09-21] MEDS: TYLENOL 325 MG TAB PO PRN ×2 (04:17→14:18)
[2019-09-21] MEDS: NS 1000 ML 1,000 ML IV SCH ×3 (04:24→19:09)
[2019-09-21 05:19] LABS: ALANINE AMINOTRANSFERASE 9 Units/L (12-78); ALBUMIN 3.2 g/dL (3.4-5.0); ALKALINE PHOSPHATASE 94 Units/L (46-116); AMYLASE 42 Units/L (25-115); BLOOD UREA NITROGEN 8 mg/dL (7-18); CALCIUM 8.7 mg/dL (8.5-10.1); CARBON DIOXIDE 26.4 mmol/L (21-32); CHLORIDE 104 mmol/L (98-107); COR CA(FOR HYPOALB) 9.3 mg/dL (8.5-10.1); CREATININE 0.69 mg/dL (0.55-1.02); LIPASE 96 Units/L (73-393); SODIUM 140 mmol/L (136-145); TOTAL PROTEIN 6.2 g/dL (6.4-8.2); eGFR NON BLACK RACES > 60 (>60)
[2019-09-21 05:22] LABS: BASOPHILS # (AUTO) 0.1 X10^3/uL (0.0-0.1); BASOPHILS % (AUTO) 0.9 % (0.2-1.0); EOSINOPHILS # (AUTO) 0.3 x10^3/uL (0.0-0.2); HEMATOCRIT 35.3 % (36.0-47.0); HEMOGLOBIN 12.1 g/dL (12.0-16.0); LYMPHOCYTES # (AUTO) 0.9 X10^3/uL (1.3-2.9); LYMPHOCYTES % (AUTO) 14.7 % (21.0-51.0); MEAN CORPUSCULAR HGB CONC 34.3 g/dL (33.0-35.0); MEAN CORPUSCULAR VOLUME 90.3 fL (80.0-100.0); MEAN PLATELET VOLUME 8.9 fL (7.4-11.0); MONOCYTES # (AUTO) 0.5 x10^3/uL (0.3-0.8); MONOCYTES % (AUTO) 8.4 % (0.0-13.0); NEUTROPHILS # (AUTO) 4.5 x10^3/uL (2.2-4.8); PLATELET COUNT 202 X10^3/uL (150.0-450.0); RED CELL DISTRIBUTION WIDTH 14.4 % (11.6-16.5); WHITE BLOOD COUNT 6.3 X10^3/uL (3.6-10.0)
[2019-09-21 05:56] LABS: ASPARTATE AMINO TRANSFERASE 20 Units/L (15-37)
[2019-09-21] MEDS: ROCEPHIN VIAL 1 GRAM 1 G in NS 100 ML IV + SPIKE MINIBAG* 100 ML IV SCH (08:52)
[2019-09-21] MEDS: SYNTHROID 50 mcg TAB PO SCH (08:54)
[2019-09-21] MEDS: PROTONIX INJ 40 MG VIAL IVP SCH (08:55)
[2019-09-21] MEDS: ZESTRIL TAB 5 MG PO SCH (08:55)
[2019-09-21] MEDS: LOVENOX INJ 40 MG SYR SC SCH (08:55)
[2019-09-21] MEDS: ZOFRAN INJ 4 MG VIAL IVP PRN ×2 (09:02→19:03)
[2019-09-21] MEDS ORDERED: FLONASE NASAL SPRAY ENOSTRIL ONE (14:16)
[2019-09-21] MEDS: FLONASE NASAL SPRAY ENOSTRIL SCH ×2 (14:17→14:18)
[2019-09-21] MEDS: COLACE CAP 100 MG PO SCH (20:08)
[2019-09-21] MEDS: AMBIEN PO SCH (20:08)
[2019-09-21] MEDS: CRESTOR TAB 10 MG PO SCH (20:09)
[2019-09-22 05:10] LABS: BASOPHILS % (AUTO) 0.6 % (0.2-1.0); EOSINOPHILS # (AUTO) 0.5 x10^3/uL (0.0-0.2); EOSINOPHILS % (AUTO) 8.6 % (0.9-2.9); HEMATOCRIT 33.1 % (36.0-47.0); HEMOGLOBIN 11.3 g/dL (12.0-16.0); LYMPHOCYTES # (AUTO) 0.7 X10^3/uL (1.3-2.9); LYMPHOCYTES % (AUTO) 14.2 % (21.0-51.0); MEAN CORPUSCULAR HEMOGLOBIN 30.7 pg (27.0-34.0); MEAN CORPUSCULAR HGB CONC 34.1 g/dL (33.0-35.0); MEAN PLATELET VOLUME 8.2 fL (7.4-11.0); MONOCYTES # (AUTO) 0.5 x10^3/uL (0.3-0.8); MONOCYTES % (AUTO) 10.4 % (0.0-13.0); NEUTROPHILS # (AUTO) 3.5 x10^3/uL (2.2-4.8); NEUTROPHILS % (AUTO) 66.2 % (42.0-75.0); PLATELET COUNT 208 X10^3/uL (150.0-450.0); RED BLOOD COUNT 3.68 X10^6/uL (3.5-5.4); RED CELL DISTRIBUTION WIDTH 14.8 % (11.6-16.5); WHITE BLOOD COUNT 5.3 X10^3/uL (3.6-10.0)
[2019-09-22 05:14] LABS: ALANINE AMINOTRANSFERASE 8 Units/L (12-78); ALKALINE PHOSPHATASE 91 Units/L (46-116); ASPARTATE AMINO TRANSFERASE 14 Units/L (15-37); BLOOD UREA NITROGEN 6 mg/dL (7-18); CALCIUM 8.5 mg/dL (8.5-10.1); CARBON DIOXIDE 25.7 mmol/L (21-32); CHLORIDE 107 mmol/L (98-107); COR CA(FOR HYPOALB) 9.3 mg/dL (8.5-10.1); CREATININE 0.92 mg/dL (0.55-1.02); SODIUM 143 mmol/L (136-145); TOTAL PROTEIN 5.9 g/dL (6.4-8.2); eGFR NON BLACK RACES > 60 (>60)
[2019-09-22] MEDS ORDERED: MICRO K EXTEN CAP 10 MEQ PO PRN (05:46)
[2019-09-22] MEDS ORDERED: POTASSIUM CHL 60 MEQ/NS 0.45% 500 ML IV PRN (05:46)
[2019-09-22] MEDS ORDERED: K-DUR TAB 20 MEQ PO PRN (05:46)
[2019-09-22] MEDS ORDERED: POTASSIUM CHLORIDE LIQ 20 MEQ UDC PO PRN (05:46)
[2019-09-22] MEDS ORDERED: KLOR-CON PO PRN (05:46)
[2019-09-22] MEDS ORDERED: POTASSIUM CHL 40 MEQ/NS 0.45% 500 ML IV PRN (05:46)
[2019-09-22] MEDS ORDERED: K-RIDER 10 MEQ/NS 100 ML 10 MEQ/100 ML BAG IV PRN (05:46)
[2019-09-22] MEDS: LOVENOX INJ 40 MG SYR SC SCH (09:40)
[2019-09-22] MEDS: SYNTHROID 50 mcg TAB PO SCH (09:40)
[2019-09-22] MEDS: PROTONIX INJ 40 MG VIAL IVP SCH (09:40)
[2019-09-22] MEDS: FLONASE NASAL SPRAY ENOSTRIL SCH (09:40)
[2019-09-22] MEDS: ZESTRIL TAB 5 MG PO SCH (09:41)
[2019-09-22] MEDS: NS 1000 ML 1,000 ML IV SCH (09:42)
[2019-09-22] MEDS: ROCEPHIN VIAL 1 GRAM 1 G in NS 100 ML IV + SPIKE MINIBAG* 100 ML IV SCH (09:46)
[2019-09-22] MEDS ORDERED: REGLAN INJ 10 MG VIAL IVP ONE (12:44)
[2019-09-22] MEDS ORDERED: REGLAN INJ 10 MG VIAL ONE (13:59)
[2019-09-22] MEDS: APRESOLINE INJ 20 MG VIAL IVP PRN ×2 (14:07→20:34)
[2019-09-22] MEDS ORDERED: DIPRIVAN VIAL 20 ML ONE (14:32)
[2019-09-22] MEDS ORDERED: DIPRIVAN VIAL ONE (14:42)
[2019-09-22] MEDS: CRESTOR TAB 10 MG PO SCH (20:32)
[2019-09-22] MEDS: AMBIEN PO SCH (20:33)
[2019-09-22] MEDS: COLACE CAP 100 MG PO SCH (20:33)
[2019-09-22] MEDS: MAGNESIUM SULFATE 1 GRAM/100 mL PREMIX 1 GM/100 ML BAG IV PRN ×2 (20:34→21:59)
[2019-09-22] MEDS: TYLENOL 325 MG TAB PO PRN (21:09)
[2019-09-23] MEDS: APRESOLINE INJ 20 MG VIAL IVP PRN ×2 (04:25→17:34)
[2019-09-23 05:40] LABS: ALANINE AMINOTRANSFERASE 8 Units/L (12-78); ALBUMIN 3.2 g/dL (3.4-5.0); ALKALINE PHOSPHATASE 96 Units/L (46-116); ASPARTATE AMINO TRANSFERASE 17 Units/L (15-37); BLOOD UREA NITROGEN 5 mg/dL (7-18); CALCIUM 8.5 mg/dL (8.5-10.1); CHLORIDE 107 mmol/L (98-107); COR CA(FOR HYPOALB) 9.1 mg/dL (8.5-10.1); CREATININE 0.84 mg/dL (0.55-1.02); MAGNESIUM 2.3 mg/dL (1.7-2.9); SODIUM 141 mmol/L (136-145); eGFR NON BLACK RACES > 60 (>60)
[2019-09-23 06:07] LABS: BASOPHILS # (AUTO) 0.1 X10^3/uL (0.0-0.1); BASOPHILS % (AUTO) 0.9 % (0.2-1.0); EOSINOPHILS # (AUTO) 0.3 x10^3/uL (0.0-0.2); HEMATOCRIT 33.1 % (36.0-47.0); HEMOGLOBIN 11.2 g/dL (12.0-16.0); LYMPHOCYTES # (AUTO) 0.8 X10^3/uL (1.3-2.9); LYMPHOCYTES % (AUTO) 11.9 % (21.0-51.0); MEAN CORPUSCULAR HEMOGLOBIN 30.6 pg (27.0-34.0); MEAN CORPUSCULAR HGB CONC 33.8 g/dL (33.0-35.0); MEAN CORPUSCULAR VOLUME 90.3 fL (80.0-100.0); MEAN PLATELET VOLUME 7.6 fL (7.4-11.0); MONOCYTES # (AUTO) 0.7 x10^3/uL (0.3-0.8); MONOCYTES % (AUTO) 9.8 % (0.0-13.0); NEUTROPHILS # (AUTO) 5.1 x10^3/uL (2.2-4.8); NEUTROPHILS % (AUTO) 72.4 % (42.0-75.0); PLATELET COUNT 212 X10^3/uL (150.0-450.0); RED BLOOD COUNT 3.66 X10^6/uL (3.5-5.4); RED CELL DISTRIBUTION WIDTH 14.8 % (11.6-16.5)
[2019-09-23] MEDS: TYLENOL 325 MG TAB PO PRN ×2 (06:26→19:50)
[2019-09-23] MEDS: PROTONIX INJ 40 MG VIAL IVP SCH ×2 (09:13→20:42)
[2019-09-23] MEDS: FLONASE NASAL SPRAY ENOSTRIL SCH (09:13)
[2019-09-23] MEDS: SYNTHROID 50 mcg TAB PO SCH (09:13)
[2019-09-23] MEDS: LOVENOX INJ 40 MG SYR SC SCH (09:14)
[2019-09-23] MEDS: ZESTRIL TAB 5 MG PO SCH (09:16)
[2019-09-23] MEDS: NS 1000 ML 1,000 ML IV SCH ×2 (09:23→21:18)
[2019-09-23] MEDS: ROCEPHIN VIAL 1 GRAM 1 G in NS 100 ML IV + SPIKE MINIBAG* 100 ML IV SCH (09:24)
[2019-09-23] MEDS: ROCEPHIN 1 GRAM IV PREMIX 1 G/50 ML IV.SOLN. IV SCH (10:32)
[2019-09-23] MEDS ORDERED: ZESTRIL TAB 5 MG PO ONE (11:00)
[2019-09-23] MEDS: BENTYL CAP 10 MG PO SCH (19:51)
[2019-09-23] MEDS: CRESTOR TAB 10 MG PO SCH (20:41)
[2019-09-23] MEDS: COLACE CAP 100 MG PO SCH (20:41)
[2019-09-23] MEDS: AMBIEN PO SCH (20:42)
[2019-09-24] MEDS: BENTYL CAP 10 MG PO SCH ×5 (00:16→21:01)
[2019-09-24] MEDS: NS 1000 ML 1,000 ML IV SCH ×3 (04:39→23:30)
[2019-09-24 05:11] LABS: BASOPHILS % (AUTO) 0.8 % (0.2-1.0); EOSINOPHILS # (AUTO) 0.3 x10^3/uL (0.0-0.2); EOSINOPHILS % (AUTO) 6.1 % (0.9-2.9); HEMATOCRIT 31.5 % (36.0-47.0); HEMOGLOBIN 10.7 g/dL (12.0-16.0); LYMPHOCYTES # (AUTO) 0.7 X10^3/uL (1.3-2.9); LYMPHOCYTES % (AUTO) 12.7 % (21.0-51.0); MEAN CORPUSCULAR HEMOGLOBIN 30.9 pg (27.0-34.0); MEAN PLATELET VOLUME 8.1 fL (7.4-11.0); MONOCYTES # (AUTO) 0.5 x10^3/uL (0.3-0.8); MONOCYTES % (AUTO) 9.2 % (0.0-13.0); NEUTROPHILS % (AUTO) 71.2 % (42.0-75.0); PLATELET COUNT 195 X10^3/uL (150.0-450.0); RED BLOOD COUNT 3.47 X10^6/uL (3.5-5.4); RED CELL DISTRIBUTION WIDTH 14.8 % (11.6-16.5); WHITE BLOOD COUNT 5.6 X10^3/uL (3.6-10.0)
[2019-09-24 05:41] LABS: ALANINE AMINOTRANSFERASE 9 Units/L (12-78); ALKALINE PHOSPHATASE 95 Units/L (46-116); ASPARTATE AMINO TRANSFERASE 20 Units/L (15-37); BLOOD UREA NITROGEN 4 mg/dL (7-18); CALCIUM 8.1 mg/dL (8.5-10.1); CARBON DIOXIDE 24.1 mmol/L (21-32); CHLORIDE 107 mmol/L (98-107); COR CA(FOR HYPOALB) 8.9 mg/dL (8.5-10.1); CREATININE 0.78 mg/dL (0.55-1.02); SODIUM 141 mmol/L (136-145); TOTAL PROTEIN 5.8 g/dL (6.4-8.2); eGFR NON BLACK RACES > 60 (>60)
[2019-09-24] MEDS: APRESOLINE INJ 20 MG VIAL IVP PRN (05:51)
[2019-09-24] MEDS: FLONASE NASAL SPRAY ENOSTRIL SCH (09:17)
[2019-09-24] MEDS: ROCEPHIN 1 GRAM IV PREMIX 1 G/50 ML IV.SOLN. IV SCH (09:18)
[2019-09-24] MEDS: ZESTRIL TAB 10 MG PO SCH (09:19)
[2019-09-24] MEDS: SYNTHROID 50 mcg TAB PO SCH (09:19)
[2019-09-24] MEDS: PROTONIX INJ 40 MG VIAL IVP SCH ×2 (09:19→21:01)
[2019-09-24] MEDS: LOVENOX INJ 40 MG SYR SC SCH (09:19)
[2019-09-24] MEDS: ZOFRAN INJ 4 MG VIAL IVP PRN (12:35)
[2019-09-24] MEDS: TYLENOL 325 MG TAB PO PRN (12:36)
--- NOTE | 2019-09-24 20:02 | PCM.PROG ---
Progress Note - Progress Note for Day of Date of Exam: 09/24/19 - Subjective Subjective: WAS ADMITTED FROM THE ER FOR ABDOMINAL PAIN, UTI POSITIVE FOR E.COLI, DEHYDRATION, WEAKNESS, ADULT FAILURE TO THRIVE, AND PANCREATITIS. HER PANCREATIC ENZYMES ARE WITHIN NORMAL LIMITIS. SHE HAD A GALLBLADDER ULTRASOUND WHICH WAS NEGATIVE. AN EGD WAS PERFORMED BY DUE TO D YSPHAGIA. EGD REVEALED A HIATAL HERNIA, DISTAL ESOPHAGEAL STRICTURE, AND MILD ANTRAL GASTRITIS. SHE HAS BEEN ON PROTONIX 40MG PO BID. TODAY, SHE IS ALERT AND ORIENTED, SITTING UP IN THE CHAIR ON MORNING ROUNDS. SHE CONTINUES WITH COMPLAINTS OF DIFFICULTY SWALLOWING AND MILD ABDOMINAL PAIN. ON EXAMINATION, HEART IS REGULAR IN RATE AND RHYTHM. BILATERAL LUNGS ARE NOTED TO BE CLEAR TO AUSCULTATION. ABDOMEN IS ROUND, SOFT, AND NOTED WITH EPIGASTRIC TENDERNESS TO PALPATION. NORMAL BOWEL SOUNDS ARE NOTED IN ALL QUADRANTS. HER VITALS THIS MORNING ARE: 98.3-109-20-95%-151/67. LABS WERE OBTAINED. ABNORMAL LAB VALUES INCLUDE THE FOLLOWING: RBC 3.47, HGB 10.7, HCT 31.5, BUN 4, GLUCOSE 107, CALCIUM 8.1, ALT 9, TOTAL PROTEIN 5.8, ALBUMIN 3.0. SHE IS CURRENTLY RECEIVING NORMAL SALINE AT 50ML/HR, ROCEPHIN 1G IV DAILY, THE POTASSIUM PROTOCOL, LOVENOX 40MG SC DAILY, RESPIRATORY TX, AND HOME MEDICATIONS WERE RESUMED. SHE WAS ALSO STARTED ON LISINOPRIL DUE TO HTN. SHE IS SCHEDULED FOR A SWALLOWING STUDY TOMORROW MORNING. AFTER DISCHARGE, SHE WILL BE TRANSFERRED TO [facility] FOR PHYSICAL THERAPY AND REHAB. WE WILL CONTINUE WITH CURRENT PLAN OF CARE TODAY. OTHERWISE, WE WILL FOLLOW UP WITH AM LABS AND CONTINUE TO MONITOR. - Past Medical Family Social History Past Med/Fam/Surg Hx: No changes since H&P Allergies: Allergies No Known Drug Allergies Allergy (Verified 10/20/17 15:23) - Review of Systems ROS: No change since H&P - Vital Signs and I&O's Vital Signs: Temperature 98.2 F Pulse Rate [Right Brachial] 73 Pulse Rate [Left] 72 Pulse Rate 91 Respiratory Rate 20 Blood Pressure [Left Arm] 190/93 Blood Pressure [Right Arm] 159/80 Blood Pressure 146/72 O2 Sat by Pulse Oximetry 97 Intake and Output: Intake & Output 09/22/19 09/23/19 09/24/19 09/25/19 11:59 11:59 11:59 11:59 Intake Total 1920 1555 / 1555 1200 / 1200 Balance 1920 1555 / 1555 1200 / 1200 - Physical Exam Oriented: Person Eyes: Normal Ear: Normal Nose: Normal Throat: Dry Respiratory: Normal Cardiovascular: Normal. negative: Edema : Normal Auscultation: Bowel Sounds: Normal Tenderness: Epigastric, Mild Skin: Decreased Turgur Musculoskeletal: Back:Thoracic, Back:Lumbar, Motor Deficit (GENERALIZED WEAKNESS) Psychiatric: Normal Mood Description: Calm Affect: Angry Speech Pattern: Clear, Appropriate - Laboratory and Diagnostics Result Diagrams: 09/24/19 04:12 09/24/19 04:12 Labs: 09/19/19 11:10 Blood Blood Culture - Final 09/19/19 10:52 Blood Blood Culture - Final 09/19/19 15:45 Urine,Clean Catch Urine Culture - Final Escherichia Coli Laboratory WBC 5.6 X10^3/uL (3.6-10.0) 09/24/19 04:12 RBC 3.47 X10^6/uL (3.5-5.4) L 09/24/19 04:12 Hgb 10.7 g/dL (12.0-16.0) L 09/24/19 04:12 Hct 31.5 % (36.0-47.0) L 09/24/19 04:12 MCV 91.0 fL (80.0-100.0) 09/24/19 04:12 MCH 30.9 pg (27.0-34.0) 09/24/19 04:12 MCHC 34.0 g/dL (33.0-35.0) 09/24/19 04:12 RDW 14.8 % (11.6-16.5) 09/24/19 04:12 Plt Count 195 X10^3/uL (150.0-450.0) 09/24/19 04:12 MPV 8.1 fL (7.4-11.0) 09/24/19 04:12 Neut % (Auto) 71.2 % (42.0-75.0) 09/24/19 04:12 Lymph % (Auto) 12.7 % (21.0-51.0) L 09/24/19 04:12 [place] % (Auto) 9.2 % (0.0-13.0) 09/24/19 04:12 Eos % (Auto) 6.1 % (0.9-2.9) H 09/24/19 04:12 Baso % (Auto) 0.8 % (0.2-1.0) 09/24/19 04:12 Neut # (Auto) 4.0 x10^3/uL (2.2-4.8) 09/24/19 04:12 Lymph # (Auto) 0.7 X10^3/uL (1.3-2.9) L 09/24/19 04:12 [place] # (Auto) 0.5 x10^3/uL (0.3-0.8) 09/24/19 04:12 Eos # (Auto) 0.3 x10^3/uL (0.0-0.2) H 09/24/19 04:12 Baso # (Auto) 0.0 X10^3/uL (0.0-0.1) 09/24/19 04:12 Absolute Nucleated RBC 0.1 /100WBC 09/24/19 04:12 Sodium 141 mmol/L (136-145) 09/24/19 04:12 Corrected Sodium TNP 09/24/19 04:12 Potassium 3.6 mmol/L (3.5-5.1) 09/24/19 04:12 Chloride 107 mmol/L (98-107) 09/24/19 04:12 Carbon Dioxide 24.1 mmol/L (21-32) 09/24/19 04:12 BUN 4 mg/dL (7-18) L 09/24/19 04:12 Creatinine 0.78 mg/dL (0.55-1.02) 09/24/19 04:12 Est GFR (MDRD) Af Amer > 60 (>60) 09/24/19 04:12 Est GFR (MDRD) Non-Af > 60 (>60) 09/24/19 04:12 Glucose 107 mg/dL (65-99) H 09/24/19 04:12 Lactic Acid 0.9 mmol/L (0.4-2.0) 09/19/19 10:52 Calcium 8.1 mg/dL (8.5-10.1) L 09/24/19 04:12 Corrected Calcium 8.9 mg/dL (8.5-10.1) 09/24/19 04:12 Magnesium 2.3 mg/dL (1.7-2.9) 09/23/19 04:12 Total Bilirubin 0.40 mg/dL (0.2-1.0) 09/24/19 04:12 AST 20 Units/L (15-37) 09/24/19 04:12 ALT 9 Units/L (12-78) L 09/24/19 04:12 Alkaline Phosphatase 95 Units/L (46-116) 09/24/19 04:12 Creatine Kinase 39 Units/L (26-192) 09/20/19 00:16 CK-MB (CK-2) 1.3 ng/mL (0-4.0) 09/20/19 00:16 CK/CKMB % Calc 3.3 % (<4) 09/20/19 00:16 Troponin I < 0.02 ng/mL (0-1.5) 09/20/19 00:16 Total Protein 5.8 g/dL (6.4-8.2) L 09/24/19 04:12 Albumin 3.0 g/dL (3.4-5.0) L 09/24/19 04:12 Globulin 2.8 g/dL (2.5-4.5) 09/24/19 04:12 Albumin/Globulin Ratio 1.1 Ratio (1.1-2.1) 09/24/19 04:12 Amylase 42 Units/L (25-115) 09/21/19 04:05 Lipase 96 Units/L (73-393) 09/21/19 04:05 Specimen Type Clean catch urine 09/19/19 15:45 Urine Color Yellow (YELLOW) 09/19/19 15:45 Urine Appearance Cloudy (CLEAR) 09/19/19 15:45 Urine pH 6.5 (5.0 - 8.0) 09/19/19 15:45 Ur Specific [place] 1.015 (1.000-1.030) 09/19/19 15:45 Urine Protein 2+ (NEGATIVE) 09/19/19 15:45 Urine Glucose (UA) Negative (NEGATIVE) 09/19/19 15:45 Urine Ketones Negative (NEGATIVE) 09/19/19 15:45 Urine Occult Blood 1+ (NEGATIVE) 09/19/19 15:45 Urine Nitrite Negative (NEGATIVE) 09/19/19 15:45 Urine Bilirubin Negative (NEGATIVE) 09/19/19 15:45 Urine Urobilinogen Normal (NORMAL) 09/19/19 15:45 Ur Leukocyte Esterase 3+ (NEGATIVE) 09/19/19 15:45 Urine RBC 0-2 /HPF (0-3) 09/19/19 15:45 Urine WBC Tntc /HPF (0-5) A 09/19/19 15:45 Ur Squamous Epith Cells Rare /HPF (NEGATIVE) 09/19/19 15:45 Amorphous Sediment Trace /HPF (NEGATIVE) 09/19/19 15:45 Urine Bacteria 3+ /HPF (NEGATIVE) 09/19/19 15:45 Ur Culture Indicated? Yes/culture set up 09/19/19 15:45 - Plan (1) E. coli UTI (urinary tract infection) Status: Acute Plan: ROCEPHIN 1G IV DAILY, CONTINUE TO MONITOR (2) Pancreatitis Status: Acute Qualifiers: Chronicity: acute Pancreatitis type: unspecified pancreatitis type (3) GERD (gastroesophageal reflux disease) Status: Acute Qualifiers: Esophagitis presence: esophagitis presence not specified Qualified Code(s): K21.9 - Gastro-esophageal reflux disease without esophagitis (4) Weakness Status: Acute (5) Hypertension Status: Acute Qualifiers: Hypertension type: essential hypertension Qualified Code(s): I10 - Essential (primary) hypertension (6) Dehydration Status: Acute
[2019-09-24] MEDS: AMBIEN PO SCH (21:00)
[2019-09-24] MEDS: CRESTOR TAB 10 MG PO SCH (21:00)
[2019-09-24] MEDS: COLACE CAP 100 MG PO SCH (21:00)
[2019-09-25 04:38] LABS: BASOPHILS # (AUTO) 0.1 X10^3/uL (0.0-0.1); BASOPHILS % (AUTO) 0.9 % (0.2-1.0); EOSINOPHILS # (AUTO) 0.5 x10^3/uL (0.0-0.2); EOSINOPHILS % (AUTO) 7.5 % (0.9-2.9); HEMATOCRIT 31.4 % (36.0-47.0); HEMOGLOBIN 10.4 g/dL (12.0-16.0); LYMPHOCYTES % (AUTO) 15.1 % (21.0-51.0); MEAN CORPUSCULAR HEMOGLOBIN 30.3 pg (27.0-34.0); MEAN CORPUSCULAR HGB CONC 33.2 g/dL (33.0-35.0); MEAN CORPUSCULAR VOLUME 91.5 fL (80.0-100.0); MEAN PLATELET VOLUME 8.7 fL (7.4-11.0); MONOCYTES # (AUTO) 0.6 x10^3/uL (0.3-0.8); MONOCYTES % (AUTO) 9.1 % (0.0-13.0); NEUTROPHILS # (AUTO) 4.4 x10^3/uL (2.2-4.8); NEUTROPHILS % (AUTO) 67.4 % (42.0-75.0); PLATELET COUNT 205 X10^3/uL (150.0-450.0); RED BLOOD COUNT 3.43 X10^6/uL (3.5-5.4); RED CELL DISTRIBUTION WIDTH 14.8 % (11.6-16.5); WHITE BLOOD COUNT 6.5 X10^3/uL (3.6-10.0)
[2019-09-25 04:49] LABS: ALANINE AMINOTRANSFERASE 10 Units/L (12-78); ALKALINE PHOSPHATASE 95 Units/L (46-116); ASPARTATE AMINO TRANSFERASE 19 Units/L (15-37); BLOOD UREA NITROGEN 5 mg/dL (7-18); CALCIUM 8.3 mg/dL (8.5-10.1); CARBON DIOXIDE 25.1 mmol/L (21-32); CHLORIDE 106 mmol/L (98-107); COR CA(FOR HYPOALB) 9.1 mg/dL (8.5-10.1); CREATININE 0.82 mg/dL (0.55-1.02); SODIUM 140 mmol/L (136-145); TOTAL PROTEIN 5.8 g/dL (6.4-8.2); eGFR NON BLACK RACES > 60 (>60)
[2019-09-25] MEDS: APRESOLINE INJ 20 MG VIAL IVP PRN (05:11)
[2019-09-25] MEDS: BENTYL CAP 10 MG PO SCH ×2 (05:12→15:07)
[2019-09-25] MEDS: PROTONIX INJ 40 MG VIAL IVP SCH (09:54)
[2019-09-25] MEDS: ROCEPHIN 1 GRAM IV PREMIX 1 G/50 ML IV.SOLN. IV SCH (09:54)
[2019-09-25] MEDS: LOVENOX INJ 40 MG SYR SC SCH (09:54)
[2019-09-25] MEDS: ZESTRIL TAB 10 MG PO SCH (09:57)
[2019-09-25] MEDS: SYNTHROID 50 mcg TAB PO SCH (09:57)
[2019-09-25] MEDS: FLONASE NASAL SPRAY ENOSTRIL SCH (10:35)
[2019-09-25 12:06] VITALS: BP 145/71
== END 2019-09-25 14:15 | DRG 689 ==
LOC: MED/SURG 09:58 → ER 09:58 → MED/SURG 14:25
PROVIDERS: ADMIT Obstetrics & Gynecology Obstetrics; ATTEND Internal Medicine
CPT/HCPCS: 36415; 71010; 71045; 74176; 76705; 80053; 81001; 82150; 82550; 82553; 83605; 83690; 83735; 84132; 84484; 85025; 87040; 87086; 87088; 87186; 92523; 92610; 92612; 93005; 94760; 96365; 97110; 97116; 97162; 97166; 97530; 97535; 99100; 99284; A4222; C9113; G0378; J0360; J0696; J1650; J2270; J2405; J2704; J2765; J3475; J3490; J7030; J7050